=== PATIENT | female | born 1970 | race Asian ===

== ENCOUNTER 2024-08-10 12:32 | Emergency (ER) | payer BC, SELFPAY ==
[2024-08-10 12:36] VITALS: BP 178/92; PULSE 77; RESP 19; TEMP 36.9; O2SAT 99; BMI 25.2
--- NOTE | 2024-08-10 13:01 | EDNOTE_ITS ---
ED Abdominal Pain RME/HPI General Chief Complaint: Abdominal Pain Stated complaint: L SIDE GROIN PAIN Time seen by provider: 08/10/24 12:41 Arrival date/time: 08/10/24 12:32 This is a 54-year-old female who present to the emergency department with complaints of sudden bilateral groin pain for 1 day. Patient reports pain 10 out of 10 to bilateral groins that radiates into her pelvis. Denies dysuria hematuria no upper abdominal pain, no fever no nausea no vomiting. She was evaluated by her PCP and sent over due to pain. Significant past medical history of hypertension, hyperlipidemia full hysterectomy, and C-sections. Source: patient Related Data Home Medications ?Medication ?Instructions ?Recorded ?Confirmed metoprolol succinate 50 mg 50 mg PO HS ##0 02/27/12 tablet,extended release 24 hr (Toprol XL) amlodipine 10 mg tablet (Norvasc) 10 mg PO QDAY #0 tabs 12/24/13 aspirin 325 mg tablet,delayed 325 mg PO QDAY ##0 12/24/13 release (Aspirin EC) ATORVASTATIN CALCIUM 40 mg PO QDAY ##90 03/11/17 Losartan Potassium * (COZAAR *) 100 mg PO QDAY #0 tabs 03/11/17 Tizanidine Hcl 2 mg PO QDAY ##30 03/11/17 metoprolol tartrate 100 mg tablet 100 mg PO QAM ##60 03/11/17 prasugrel 10 mg tablet (Effient) 10 mg PO QDAY #0 tabs 03/12/17 Previous Rx's ?Medication ?Instructions ?Recorded Hydrocodone/Acetaminophen * (NORCO 1 tab PO Q6H PRN PAIN #12 tabs 03/12/17 5/325 *) ibuprofen 600 mg tablet 1 tab PO Q8HR PRN INFLAMMATION #30 03/12/17 tabs Hydrocodone/Acetaminophen * (NORCO 1 tab PO Q6H PRN pain #20 tabs 09/01/17 5/325 *) diphenhydramine HCl 25 mg capsule 25 mg PO Q8H PRN allergic symptoms 11/18/23 (Benadryl) #30 caps meloxicam 7.5 mg tablet 7.5 mg PO BID #14 tabs 08/10/24 Allergies Allergy/AdvReac Type Severity Reaction Status Date / Time No Known Allergies Allergy Verified 11/18/23 07:13 Review of Systems Review of Systems Systems Reviewed: All systems reviewed, normal except as documented Narrative Review of Systems: Gen: No fever, no chills, no weight loss EYES: No discharge, no visual changes, no pain HEENT: No ear pain, no congestion, no sore throat PULM: No shortness of breath, no cough, no congestion CV: No chest pain, no dyspnea on exertion, no palpitations GI: No nausea, no vomiting, no diarrhea, no pain, no constipation : No frequency, no urgency,? no dysuria Musc/skel: kody groin pain, no back pain Skin: No rash? ED Exam Narrative Physical exam: General: 54-year-old female awake and alert in distress due to pain, answering questions appropriately HENT: normocephalic, atraumatic, EOMI, PERRLA, moist mucous membranes Chest: chest wall is nontender Cardiac: regular rate and rhythm, normal S1 and S2, no murmurs, rubs, or gallops, capillary refill ?2 seconds Pulmonary: clear to auscultation bilaterally, no wheezing, crackles, or rhonchi Abdominal: active bowel sounds, soft, nontender, nondistended. mild pelvic pain, pain to bilateral groin. No bulging or masses. positive pulses Neuro: A&OX3, CN II-XII intact, sensation grossly intact bilaterally in UE and LE. Skin: no rashes, no ecchymosis Ext: no lower extremity edema Course Quality Measures none Orders Category Date Time Status CT Screening NOW Care 08/10/24 13:[address] abdomen pelvis w con Stat Exams 08/10/24 13:22 Completed US pelvic complete Stat Exams 08/10/24 14:07 Completed XR hip BI w pelvis 3-4V Stat Exams 08/10/24 13:00 Completed CBC Stat Lab 08/10/24 13:41 Completed Comprehensive Metabolic Panel Stat Lab 08/10/24 13:41 Completed Lipase Stat Lab 08/10/24 13:41 Completed Urinalysis Stat Lab 08/10/24 13:54 Completed Urine Culture Stat Lab 08/10/24 13:54 Received HYDROcodone*/APAP 5/325 [[place] 5/325] Med 08/10/24 13:03 Discontinued 1 tab PO X1 ONE Ketorolac Inj [Toradol Inj] Med 08/10/24 13:03 Discontinued 30 mg IM X1 ONE Vital Signs Vital signs: Vital Signs Temperature 98.5 F 08/10/24 12:36 Pulse Rate 77 08/10/24 12:36 Respiratory Rate 19 08/10/24 12:36 Blood Pressure 178/92 H 08/10/24 12:36 Pulse Oximetry (%) 99 08/10/24 12:36 Oxygen Delivery Method Room Air 08/10/24 12:36 Abdominal Pain MDM MDM Narrative MDM Narrative:: 54-year-old female evaluated in the emergency department for complaints of bilateral hip groin pain that began 1 day. Patient is appears to be in pain 10 out of 10 upon arrival. Vital signs stable. History of bladder lift, and hysterectomy. I will go ahead and order a CT abdomen pelvis to rule out any intra-abdominal pathology. An x-ray of hips. Patient was given 1 dose of Toradol and [place] while in ED relieving her pain. Patient did feel much improved after pain medication. CT was unremarkable. X-ray did demonstrate bilateral hip osteoarthritis. At this time I feel that the patient is stable to please call and make an appointment to see primary doctor in 1 to 2 days. Come back to the emergency room if symptoms change or worsen. Patient data External records reviewed:: [facility] previous records Clinical information provided by:: patient Social determinants that could affect healthcare access:: none Patient has the following chronic illnesses:: Hypertension, hyperlipidemia How is presenting disease/condition affected by chronic disease/condition?: no chronic disease Evaluation data The following diagnostics were reviewed and interpreted by me:: lab results and radiology exam(s) Lab and/or radiology exams considered but not ordered:: no Interpretation Summary: Examination: Bilateral hips, AP pelvis, 5 views Technique: AP, lateral views both hips, AP pelvis, 5 views Exam date and time: August 10, 2024 1313 hours INDICATIONS: Bilateral hip pain beginning 5 days ago FINDINGS: Moderate osteopenia Moderate bilateral hip osteoarthritis No right or left hip fracture or dislocation 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 CTDI: vol (mGy) 7.46 DLP: (mGycm) 443 Technique: Multiple axial sections of the abdomen and pelvis have been obtained. 64 slice high-resolution scanner used. 3 mm axial sections have been obtained, post intravenous injection Isovue 370 60 cc 2-D sagittal, coronal reconstructions obtained. Low dose protocols were performed. One or more of the following dose reduction techniques were used; automated exposure control, adjustment of the mA and/or KV according to patient size, use of iterative reconstruction technique. Findings: Diffuse fatty infiltration throughout the liver, no focal liver lesions No splenic pancreatic or adrenal mass Absent gallbladder No renal or ureteral calculi, no hydronephrosis Aorta normal size Normal appendix No bowel obstruction No diverticulitis Absent uterus No adnexal mass Mild thickening of the urinary bladder wall up to 7 mm No bladder calculi No inguinal or common femoral hernias Grade 1 anterolisthesis L4 on L5 Moderate narrowing hip joints IMPRESSION: Diffuse fatty liver No renal or ureteral calculi, no hydronephrosis Normal appendix Mild thickening of the urinary bladder wall, differential would include cystitis No pelvic mass No inguinal or common femoral hernias Examination: Pelvic ultrasound, transabdominal, complete Technique: Transabdominal ultrasound of the pelvis performed using grayscale imaging Date and time of exam: August 10, 2024 1609 hours INDICATIONS: Pelvic pain beginning one week ago, hysterectomy 2014 FINDINGS: Absent uterus Ovaries obscured by bowel gas No free fluid in the pelvis IMPRESSION: Absent uterus Ovaries obscured by bowel gas No free fluid or solid pelvic mass demonstrated Medications / Prescriptions Medications or Prescriptions considered but not ordered:: no Medication administrations:: Medication Administration History Discontinued Medications Hydrocodone Bitart/Acetaminophen (Hydrocodone/Apap 5/325 Tablet) 1 tab PO X1 ONE Stop: 08/10/24 13:04 Last Admin: 08/10/24 13:29 Dose: 1 tab Documented By: Ketorolac Tromethamine (Ketorolac Inj 60 Mg/2 Ml Vial) 30 mg IM X1 ONE Stop: 08/10/24 13:04 Last Admin: 08/10/24 13:30 Dose: 30 mg Documented By: All medications administered and effective Consultations Consultation(s) initiated? (list below): No Diagnosis Differential diagnosis abdominal pain: abdominal pain, acute appendicitis, calculus of kidney, constipation, endometriosis, pancreatitis and other (Incarcerated hernia, vascular necrosis of hips.) Most likely diagnosis given after review of the tests above:: Groin pain, hip osteoarthritis Admission Indicated Admission indicated?: not indicated Admission Request Was there a request for admission?: No Disposition Plan Disposition Plan: Discharge Discharge Attestation Discharge Attestation: The patient and all family members were given an opportunity to ask questions and understood the discharge instructions. Discharge instructions specifically effects, indications for sooner follow up or return to the emergency department, and the expected course of current diagnosis. Patient condition: Stable Discharge Plan Plan Patient Disposition: HOME (Self Care) Patient condition on transfer: Stable Prescriptions/Referrals Prescriptions/Med Rec: New meloxicam 7.5 mg tablet 7.5 mg PO BID Qty: 14 0RF No Action metoprolol succinate [Toprol XL] 50 MG tablet extended release 24 hr 50 mg PO HS Qty: 0 aspirin [Aspirin EC] 325 MG tablet,delayed release (DR/EC) 325 mg PO QDAY Qty: 0 amlodipine [Norvasc] 10 MG tablet 10 mg PO QDAY Qty: 0 ATORVASTATIN CALCIUM 40 MG tablet 40 mg PO QDAY Qty: 90 metoprolol tartrate 100 MG tablet 100 mg PO QAM Qty: 60 Losartan Potassium * (COZAAR *) 100 MG tablet 100 mg PO QDAY Qty: 0 Tizanidine Hcl 2 MG tablet 2 mg PO QDAY Qty: 30 ibuprofen 600 MG tablet 1 tab PO Q8HR PRN (Reason: INFLAMMATION) Qty: 30 0RF Hydrocodone/Acetaminophen * (NORCO 5/325 *) 1 TAB tablet 1 tab PO Q6H PRN (Reason: PAIN) Qty: 12 0RF prasugrel [Effient] 10 MG tablet 10 mg PO QDAY Qty: 0 Hydrocodone/Acetaminophen * (NORCO 5/325 *) 1 TAB tablet 1 tab PO Q6H PRN (Reason: pain) Qty: 20 0RF diphenhydramine HCl [Benadryl] 25 mg capsule 25 mg PO Q8H PRN (Reason: allergic symptoms) Qty: 30 0RF Referrals: Pearl Bautista MD [Primary Care Provider] - In 1 week Problem List Clinical Impression: Bilateral primary osteoarthritis of hip, Bilateral groin pain Patient/Caregiver Discharge Instructions Discharge Activity: activity as tolerated Education Materials: ED Osteoarthritis Additional Instructions: -as discussed this is most likely arthritis pain. -You can start taking meloxicam as directed for pain. -Follow-up with your primary doctor copies of your imaging have been provided. Return to the emergency department with any worsening symptoms or change in condition. Print Language: [place] Stand Alone Forms: [place] Award Info., Work/School Release, Patient Portal Info Letter PA/DRILL PRESS SET UP OPERATOR Supervising Physician PA/DRILL PRESS SET UP OPERATOR Supervising Physician: Dr. Weston
--- NOTE | 2024-08-10 13:22 | XR_ITS ---
Examination: CT abdomen with intravenous contrast CT pelvis with intravenous contrast 2-D coronal reconstructions 2-D sagittal reconstructions Date and time of exam:August 10, 2024 1753 hours INDICATIONS: Pelvic pain radiating to the groin today. CTDI: vol (mGy) 7.46 DLP: (mGycm) 443 Technique: Multiple axial sections of the abdomen and pelvis have been obtained. 64 slice high-resolution scanner used. 3 mm axial sections have been obtained, post intravenous injection Isovue 370 60 cc 2-D sagittal, coronal reconstructions obtained. Low dose protocols were performed. One or more of the following dose reduction techniques were used; automated exposure control, adjustment of the mA and/or KV according to patient size, use of iterative reconstruction technique. Findings: Diffuse fatty infiltration throughout the liver, no focal liver lesions No splenic pancreatic or adrenal mass Absent gallbladder No renal or ureteral calculi, no hydronephrosis Aorta normal size Normal appendix No bowel obstruction No diverticulitis Absent uterus No adnexal mass Mild thickening of the urinary bladder wall up to 7 mm No bladder calculi No inguinal or common femoral hernias Grade 1 anterolisthesis L4 on L5 Moderate narrowing hip joints IMPRESSION: Diffuse fatty liver No renal or ureteral calculi, no hydronephrosis Normal appendix Mild thickening of the urinary bladder wall, differential would include cystitis No pelvic mass No inguinal or common femoral hernias
[2024-08-10] MEDS: HYDROcodone/APAP 5/325 TABLET 1 TAB PO (13:29)
[2024-08-10] MEDS: KETOROLAC INJ 60 MG/2 ML VIAL 30 MG IM (13:30)
[2024-08-10 14:04] LABS: Collection Type, Urine Clean Catch; RBC,Urine 0 /hpf (0-3)
[2024-08-10 14:06] LABS: Basophils % (Auto) 1 % (0-2.5); Eosinophils # (Auto) 0.2 Thou/mm3 (0.0-0.5); Eosinophils % (Auto) 3 % (0-10); Hematocrit 42.2 % (36.0-46.0); Hemoglobin 14.4 g/dL (12.0-16.0); Immature Granulocytes % (Auto) 0 % (0-0); Immature Granulocytes Auto 0.02 Thou/mm3 (0.00-0.00); Lymphocytes # (Auto) 2.8 Thou/mm3 (1.0-4.8); Lymphocytes % (Auto) 37 % (10-50); Mean Corpuscular HGB Conc 34.1 g/dl (31.0-37.0); Mean Corpuscular Hemoglobin 28.7 pg (25.0-35.0); Mean Corpuscular Volume 84 fL (80-100); Monocytes # (Auto) 0.5 Thou/mm3 (0.0-0.8); Monocytes % (Auto) 7 % (0-12); Neutrophils % (Auto) 53 % (37-80); Nucleated Red Blood Cell % 0 /100 WBC (0); Platelet Count 209 Thou/mm3 (140-440); RDW Standard Deviation 37.7 fL (36.4-46.3); Red Blood Count 5.02 Miln/mm3 (4.00-5.20); White Blood Count 7.4 Thou/mm3 (3.6-11.0)
--- NOTE | 2024-08-10 14:07 | XR_ITS ---
Examination: Pelvic ultrasound, transabdominal, complete Technique: Transabdominal ultrasound of the pelvis performed using grayscale imaging Date and time of exam: August 10, 2024 1609 hours INDICATIONS: Pelvic pain beginning one week ago, hysterectomy 2014 FINDINGS: Absent uterus Ovaries obscured by bowel gas No free fluid in the pelvis IMPRESSION: Absent uterus Ovaries obscured by bowel gas No free fluid or solid pelvic mass demonstrated
[2024-08-10 14:17] LABS: Bacteria,Urine Rare; Bilirubin,Urine Negative (Negative); Blood,Urine Negative (Negative); Clarity,Urine Clear (Clear/Hazy); Color,Urine Lt-Yellow (Lt Yel-Yel); Glucose, Urine Negative (Negative); Ketones,Urine Negative (Negative); Leukocyte Esterase,Urine Negative (Negative); Nitrite,Urine Negative (Negative); PH,Urine 6.5 (5.0-7.0); Protein,Urine Negative (Neg - Trace); Specific Gravity,Urine 1.017 (1.001-1.035); Squamous Epithelial Cell,Urine < 1 /hpf (0-5); Urobilinogen,Urine Negative mg/dL (0.0-1.0); WBC,Urine 1 /hpf (0-5)
[2024-08-10 14:28] LABS: Alanine Aminotransferase 53 U/L (10-49); Albumin/Globulin Ratio 1.9 (1.2-2.2); Alkaline Phosphatase 99 U/L (46-116); Anion Gap 10 (7-16); Aspartate Amino Transferase 29 U/L (0-34); BUN/Creatinine Ratio 14 Ratio (12-20); Blood Urea Nitrogen 13 mg/dL (9-23); Calcium 9.6 mg/dL (8.3-10.6); Calcium (Corrected) 9.6 mg/dL (8.5-10.1); Carbon Dioxide 27.3 mMol/L (20.0-31.0); Chloride 104 mMol/L (98-107); Creatinine (Component) 0.9 mg/dL (0.6-1.3); Estimated Creatinine Clearance 67.7 mL/min (>60); Globulin 2.6 gm/dL (2.3-3.5); Glucose 112 mg/dL (74-106); Lipase 54 U/L (12-53); Osmolality,Calculated 282 (275-295); Potassium 3.4 mMol/L (3.4-5.1); Sodium 141 mMol/L (136-145); Total Protein 7.6 gm/dL (5.7-8.2); eGFR > 60 See Note
== END 2024-08-10 17:40 | disposition home or self-care (01) ==
PROVIDERS: Nurse Practitioner Primary Care; Emergency Provider Emergency Medicine; PCP Internal Medicine
DX: R10.32 Left lower quadrant pain (principal); R10.31 Right lower quadrant pain; M16.0 Bilateral primary osteoarthritis of hip; E78.5 Hyperlipidemia, unspecified; I10 Essential (primary) hypertension; K76.0 Fatty (change of) liver, not elsewhere classified
CPT/HCPCS: 36415; 73522; 74177; 76856; 80053; 81001; 83690; 85025; 87086; 96372; 99285; A4649; J1885; Q9967; A9270

== ENCOUNTER → 2024-08-12 | Outpatient (CLI) | payer BC, SELFPAY ==
[2024-08-12 10:17] LABS: Basophils % (Auto) 1 % (0-2.5); Eosinophils # (Auto) 0.1 Thou/mm3 (0.0-0.5); Eosinophils % (Auto) 3 % (0-10); Hematocrit 42.4 % (36.0-46.0); Hemoglobin 14.5 g/dL (12.0-16.0); Immature Granulocytes % (Auto) 0 % (0-0); Immature Granulocytes Auto 0.01 Thou/mm3 (0.00-0.00); Lymphocytes # (Auto) 1.6 Thou/mm3 (1.0-4.8); Lymphocytes % (Auto) 31 % (10-50); Mean Corpuscular HGB Conc 34.2 g/dl (31.0-37.0); Mean Corpuscular Hemoglobin 28.7 pg (25.0-35.0); Mean Corpuscular Volume 84 fL (80-100); Monocytes # (Auto) 0.3 Thou/mm3 (0.0-0.8); Monocytes % (Auto) 6 % (0-12); Neutrophils % (Auto) 59 % (37-80); Nucleated Red Blood Cell % 0 /100 WBC (0); Platelet Count 229 Thou/mm3 (140-440); RDW Standard Deviation 37.7 fL (36.4-46.3); Red Blood Count 5.05 Miln/mm3 (4.00-5.20)
[2024-08-12 10:34] LABS: Glucose Estimated Average 163 mg/dL (80-131); Hemoglobin A1C 7.3 % Hgb (4.8-6.0)
[2024-08-12 10:42] LABS: Alanine Aminotransferase 78 U/L (10-49); Albumin, Serum 5.2 gm/dL (3.5-5.0); Albumin/Globulin Ratio 2.2 (1.2-2.2); Alkaline Phosphatase 110 U/L (46-116); Anion Gap 8 (7-16); Aspartate Amino Transferase 35 U/L (0-34); BUN/Creatinine Ratio 19 Ratio (12-20); Bilirubin,Total 1.2 mg/dL (0.3-1.2); Blood Urea Nitrogen 17 mg/dL (9-23); Calcium 10.2 mg/dL (8.3-10.6); Calcium (Corrected) 10.2 mg/dL (8.5-10.1); Carbon Dioxide 30.1 mMol/L (20.0-31.0); Cardiac Risk Estimate 3.7 RATIO (3.7-5.6); Chloride 103 mMol/L (98-107); Cholesterol 174 mg/dL (132-200); Creatinine (Component) 0.9 mg/dL (0.6-1.3); Globulin 2.4 gm/dL (2.3-3.5); Glucose 138 mg/dL (74-106); HDL Cholesterol 47 mg/dL (40-60); LDL Cholesterol,Calculated 102 mg/dL (0-130); Osmolality,Calculated 284 (275-295); Potassium 3.6 mMol/L (3.4-5.1); Sodium 141 mMol/L (136-145); Thyroid Stimulating Hormone 1.14 uIU/mL (0.55-4.78); Total Protein 7.6 gm/dL (5.7-8.2); Triglycerides 127 mg/dL (30-150); Uric Acid 7.2 mg/dL (3.1-7.8); eGFR > 60 See Note
[2024-08-12 10:50] LABS: Vitamin B12 918 pg/mL (211-911); Vitamin D 25 Hydroxy Total 52.1 ng/mL (7.3-40.2)
[2024-08-12 13:23] LABS: Collection Type, Urine Clean Catch; Squamous Epithelial Cell,Urine 0 /hpf (0-5)
[2024-08-12 13:47] LABS: Bilirubin,Urine Negative (Negative); Blood,Urine Negative (Negative); Clarity,Urine Clear (Clear/Hazy); Color,Urine Colorless (Lt Yel-Yel); Glucose, Urine Negative (Negative); Ketones,Urine Negative (Negative); Leukocyte Esterase,Urine Negative (Negative); Nitrite,Urine Negative (Negative); PH,Urine 6.5 (5.0-7.0); Protein,Urine Negative (Neg - Trace); RBC,Urine 1 /hpf (0-3); Specific Gravity,Urine 1.006 (1.001-1.035); Urobilinogen,Urine Negative mg/dL (0.0-1.0); WBC,Urine 5 /hpf (0-5)
[2024-08-12 14:05] LABS: Creatinine MALB Rnd Ur 30 mg/dL (30-125); Microalbumin, Random Urine < 3 mg/L (0-300)
[2024-08-16 06:24] LABS: Aldosterone* 5 ng/dL
[2024-08-22 06:54] LABS: Renin Activity, Plasma* 0.39 ng/mL/h (0.25-5.82)
== END | disposition home or self-care (01) ==
PROVIDERS: PCP Internal Medicine; Referring Provider Internal Medicine Endocrinology, Diabetes & Metabolism; Visit Provider Internal Medicine
DX: Z00.00 Encounter for general adult medical examination without abnormal findings (principal); E11.65 Type 2 diabetes mellitus with hyperglycemia; I10 Essential (primary) hypertension; E78.5 Hyperlipidemia, unspecified; E26.9 Hyperaldosteronism, unspecified
CPT/HCPCS: 36415; 80053; 80061; 81001; 82043; 82088; 82306; 82570; 82607; 83036; 84244; 84443; 84550; 85025

== ENCOUNTER → 2024-08-12 | Outpatient (CLI) | payer BC, SELFPAY ==
--- NOTE | 2024-08-12 12:30 | XR_ITS ---
Examination: Thyroid sonography complete TECHNIQUE: Grayscale high resolution grayscale sonographic images thyroid lobes with color flow analysis Exam date and time: August 12, 2024 1158 hours INDICATIONS: History bilateral thyroid nodules on ultrasound October 07, 2023, lower pole left thyroid nodule 12 mm biopsied on January 20, 2024, negative FINDINGS: Right thyroid 5.1 x 1.9 x 1.9 cm Lower pole nodule 6 x 5 x 5 mm, 5 x 2 x 6 mm Left thyroid 4.7 x 1.6 x 1.9 cm Upper pole nodule 7 x 4 x 7 mm, 6 x 5 x 6 mm Lower pole nodule 11 x 8 x 11 mm IMPRESSION: Thyroid nodules as above Consider 6 month continued ultrasound follow-up
== END | disposition home or self-care (01) ==
PROVIDERS: PCP Internal Medicine; Referring Provider Internal Medicine Endocrinology, Diabetes & Metabolism; Visit Provider Internal Medicine Endocrinology, Diabetes & Metabolism
DX: E04.2 Nontoxic multinodular goiter (principal)
CPT/HCPCS: 76536

== ENCOUNTER 2024-12-05 06:29 | Emergency (ER) | payer BC, SELFPAY ==
[2024-12-05] VITALS (7 sets, daily range): BP systolic 88–124; BP diastolic 55–80; PULSE 69–88; RESP 13–19; TEMP 36.6–37.2; O2SAT 95–98; BMI 25.0
--- NOTE | 2024-12-05 06:54 | EKG_ITS ---
[facility] Test Date: 2024-12-05 Pat Name: MARIELENA DELGADO Department: Room: - Gender: Female [employer]: : 1970 Requested By: Darian Santana Order Number: [id number] Reading MD: Darian Santana Measurements Intervals [place] Rate: 72 P: 136 MN: 212 QRS: 3 QRSD: 95 T: 27 QT: 402 QTc: 440 Interpretive Statements ELECTRONIC ATRIAL PACEMAKER LOW QRS VOLTAGE IN PRECORDIAL LEADS [QRS DEFLECTION < 1.0 mV IN CHEST LEADS] NONSPECIFIC T-WAVE ABNORMALITY ABNORMAL RHYTHM ECG No previous ECG available for comparison /store/S0/[id number].pdf
--- NOTE | 2024-12-05 06:57 | PD.EDRME ---
Rapid Medical Screening Exam E Arrival date/time: 12/05/24 06:29 54-year-old female with a history of hyperlipidemia, hypertension, presents to the emergency room with a chief complaint of lower lumbar back pain, near syncope, dizziness x 2 days. Patient states all of her symptoms began yesterday and has progressively gotten worse overnight. I have greeted and performed a focused initial assessment of this patient. A comprehensive ED assessment and evaluation of the patient, analysis of all test results, and completion of the medical decision making process will be conducted by additional ED providers. Chief Complaint: Back Pain/Injury Time Seen by Provider: 12/05/24 06:39 Vital signs: Vital Signs Temperature 98.9 F 12/05/24 06:49 Pulse Rate 69 12/05/24 06:49 Respiratory Rate 16 12/05/24 06:49 Blood Pressure 91/60 12/05/24 06:49 Pulse Oximetry (%) 98 12/05/24 06:49 Oxygen Delivery Method Room Air 12/05/24 06:49 Vital signs reviewed by provider: Yes
--- NOTE | 2024-12-05 07:17 | EDNOTE_ITS ---
ED General RME/HPI General Chief complaint: Back Pain/Injury Stated complaint: BACK PAIN Time Seen by Provider: 12/05/24 06:39 Arrival date/time: 12/05/24 06:29 RME / HPI RME / HPI narrative: 12/05/24 06:29 54-year-old female with a history of hyperlipidemia, hypertension, presents to the emergency room with a chief complaint of lower lumbar back pain, near syncope, dizziness x 2 days. Patient states all of her symptoms began yesterday and has progressively gotten worse overnight. I have greeted and performed a focused initial assessment of this patient. A comprehensive ED assessment and evaluation of the patient, analysis of all test results, and completion of the medical decision making process will be conducted by additional ED providers. DR. JARAMILLO MAIN ED EVALUATION: 54 year old female presents to the Emergency Department with complaint of right sided mid back pain since yesterday evening. She states she was trying to get up from the couch and felt like she pulled something. She states that she took Tylenol with little to no relief last night. Then this morning she had pain again and came in for evaluation. She denies any radiation. States she has history of sciatica pain but this feels different with no radiation. Other symptoms reported include nausea and loose stools. No vomiting. Denies any fall or recent injury. Denies any dysuria or other urinary symptoms. Reports normal appetite. She also mentions she has history of hypertension but did not take her medications this morning because her blood pressure was low at home. No known allergies. Related Data Home Medications ?Medication ?Instructions ?Recorded ?Confirmed metoprolol succinate 50 mg 50 mg PO HS ##0 02/27/12 tablet,extended release 24 hr (Toprol XL) amlodipine 10 mg tablet (Norvasc) 10 mg PO QDAY #0 tab s 12/24/13 aspirin 325 mg tablet,delayed 325 mg PO QDAY ##0 12/24 release (Aspirin EC) ATORVASTATIN CALCIUM 40 mg PO QDAY ##90 03/11/17 Losartan Potassium * (COZAAR *) 100 mg PO QDAY #0 tabs 03/11/17 Tizanidine Hcl 2 mg PO QDAY ##30 03/11/17 metoprolol tartrate 100 mg tablet 100 mg PO QAM ##60 0 03/11/17 prasugrel 10 mg tablet (Effient) 10 mg PO QDAY #0 tabs 03/12/17 Previous Rx's ?Medication ?Instructions ?Recorded Hydrocodone/Acetaminophen * (NORCO 1 tab PO Q6H PRN PA IN #12 tabs 03/12/17 5/325 *) ibuprofen 600 mg tablet 1 tab PO Q8HR PRN INFLAMMATI ON #30 03/12/17 tabs Hydrocodone/Acetaminophen * (NORCO 1 tab PO Q6H PRN pa in #20 tabs 09/01/17 5/325 *) diphenhydramine HCl 25 mg capsule 25 mg PO Q8H PRN all ergic symptoms 11/18/23 (Benadryl) #30 caps meloxicam 7.5 mg tablet 7.5 mg PO BID #14 tabs 08/10 cyclobenzaprine 5 mg tablet 5 mg PO TID PRN muscle spa sm #10 12/05/24 tabs Allergies Allergy/AdvReac Type Severity Reaction Status Date / Time No Known Allergies Allergy Verified 12/05/24 06:38 Review of Systems Review of Systems Systems Reviewed: All systems reviewed, normal except as documented Narrative Review of Systems: Gen: No fever, no chills, no weight loss EYES: No discharge, no visual changes, no pain HEENT: No ear pain, no congestion, no sore throat PULM: No shortness of breath, no cough, no congestion CV: No chest pain, no dyspnea on exertion, no palpitations GI: + nausea, no vomiting, + loose stools, no pain, no constipation : No frequency, no urgency, no dysuria Musc/skel: No joint pain, + right sided mid back pain Skin: No rash Psyc: No hallucinations, no depression Heme/Lymph: No easy bleeding or bruising tendencies Neuro: No weakness, no headache Past Medical History Past Medical History CARDIAC: Positive Cardiac Disorders (Sick sinus syndrome, 1 stent), Coronary Artery Disease and Hypertension Surgical History SURGICAL: Positive Coronary Stent and Pacemaker (atrial pacemaker) Social History SMOKING STATUS: Never smoker SUBSTANCE USE: does not use ALCOHOL: Never ED Exam Narrative Physical exam: GENERAL APPEARANCE: alert and oriented x 4, well-developed, well-nourished, no acute distress VITALS: All vitals were reviewed and the pulse ox is 98% on room air, which is normal according to my interpretation. HEENT: Normocephalic, atraumatic; pupils equal, round, reactive to light; EOMI; mucous membranes pink, moist; oropharynx clear NECK: Supple LUNGS: CTABL; no wheezes, no rales, no rhonchi HEART: Regular rate, regular rhythm; normal S1, S2; no murmurs ABDOMEN: non distended; normal BS; soft, no tenderness, no guarding, no rebound; no masses, no organomegaly, no hernia BACK: no CVA tenderness EXTREMITIES: atraumatic; no edema NEUROLOGIC: awake; alert and oriented x4; cranial nerves II-XII grossly intact; no focal sensory or motor deficits PSYCHIATRIC: appropriate mood and affect SKIN: warm, dry, normal color; no rashes Course Quality Measures none Orders Category Date Time Status Bedside Blood Glucose NOW Care 12/05/24 06:54 Active EKG (ED ONLY) *Do not use* NOW Care 12/05/24 06:54 Completed MRI Screening NOW Care 12/05/24 14:01 Active Orthostatic Vitals NOW Care 12/05/24 06:54 Active EKG (ED Only) Stat Exams 12/05/24 06:54 Draft MR MRCP Stat Exams 12/05/24 Ordered US abdomen limited Stat Exams 12/05/24 08:59 Completed BNP [B-Type Natriuretic Peptide] Stat Lab 12/05/24 08:09 Completed CBC Stat Lab 12/05/24 08:09 Completed Comprehensive Metabolic Panel Stat Lab 12/05/24 08:09 Completed Troponin I Stat Lab 12/05/24 08:09 Completed Urinalysis Stat Lab 12/05/24 06:38 Completed Urine Culture Stat Lab 12/05/24 06:38 Received CYCLObenzaPRINE [Flexeril] Med 12/05/24 17:16 Discontinued 5 mg PO X1 ONE Calcium Gluc/Ns 1000MG Ivpb [Calcium Gluc/Ns 1000mg Med 12/05/24 14:41 Discontinued Ivpb] 1,000 mg in 50 ml IV X1 Ketorolac Inj [Toradol Inj] Med 12/05/24 09:02 Discontinued 15 mg IVP X1 ONE Sod Polystyrene Sulfon Susp [Kayexalate Susp] Med 12/05/24 14:41 Discontinued 30 gm PO X1 ONE fentaNYL INJ [Sublimaze Inj] Med 12/05/24 07:55 Discontinued 50 mcg IVP X1 ONE Vital Signs Vital signs: Vital Signs Temperature 98.9 F 12/05/24 06:49 Pulse Rate 69 12/05/24 06:49 Respiratory Rate 16 12/05/24 06:49 Blood Pressure 91/60 12/05/24 06:49 Pulse Oximetry (%) 98 12/05/24 06:49 Oxygen Delivery Method Room Air 12/05/24 06:49 [facility] Patient data External records reviewed:: [facility] previous records (Previous records shows slight transaminitis) Clinical information provided by:: patient Social determinants that could affect healthcare access:: none Patient has the following chronic illnesses:: Hypertension, sciatica, pacemaker How is presenting disease/condition affected by chronic disease/condition?: e xacerbated by Evaluation data The following diagnostics were reviewed and interpreted by me:: lab results (Slight transaminitis, renal function at baseline), radiology exam(s) and EKG tracing(s) (EKG#1: EKG at 0713 hours. Interpreted by me: paced rhythm, rate 72, low voltage) Lab and/or radiology exams considered but not ordered:: none Interpretation Summary: Slight transaminitis, renal function at baseline. RADIOLOGY Procedure(s): US abdomen limited Accession Number(s): [id number] cc: Castro Tinsley MD; Jennifer Jaramillo MD; Ankur Brush MD~ Examination: Abdomen sonogram, Limited Date and time of exam: December 05, 2024 1031 hours INDICATIONS: Right upper abdominal pain and nausea beginning today Technique: Real-time zee scale transabdominal sonographic images of the upper abdomen obtained. Findings: Absent gallbladder Common bile duct enlarged 1.1 cm Pancreatic head 2.2 cm Liver 15.2 cm fatty infiltration 15 mm right lobe liver cyst Normal hepatopedal portal venous flow Patent IVC 4 mm right renal calculus IMPRESSION: Abnormally enlarged common bile duct, recommend MRCP follow-up to exclude common bile duct stones and/or stricture Dictated By: Castro Tinsley MD Medications Medications considered but not ordered:: none Medication administrations:: Medication Administration History Discontinued Medications Cyclobenzaprine HCl (Cyclobenzaprine 5 Mg Tablet) 5 mg PO X1 ONE Stop: 12/05/24 17:17 Last Admin: 12/05/24 17:22 Dose: 5 mg Documented By: ZAY Fentanyl Citrate (Fentanyl Cit Inj 50 Mcg/Ml Amp 2ml) 50 mcg IVP X1 ONE Stop: 12/05/24 07:56 Last Admin: 12/05/24 08:11 Dose: 50 mcg Documented By: GERTRUDE Calcium Gluconate/Sodium Chloride (Calcium Gluc/Ns 1000mg Ivpb) 1,000 mg in 50 mls @ 50 mls/hr IV X1 ONE Stop: 12/05/24 15:40 Last Infusion: 12/05/24 17:19 Dose: Infused Documented By: Admin: 12/05/24 16:15 Dose: 50 mls/hr Documented By: Infusion: 12/05/24 16:15 Dose: Infused Documented By: Infusion: 12/05/24 15:24 Dose: 0 mls/hr Documented By: Admin: 12/05/24 15:24 Dose: 50 mls/hr Documented By: NAI Ketorolac Tromethamine (Ketorolac Inj 30 Mg/Ml Vial) 15 mg IVP X1 ONE Stop: 12/05/24 09:03 Last Admin: 12/05/24 09:17 Dose: 15 mg Documented By: ZAY Sodium Polystyrene Sulfonate (Sod Polystyrene Sulfon Susp 15 Gm/60 Ml Btl) 30 gm PO X1 ONE Stop: 12/05/24 14:42 Last Admin: 12/05/24 15:22 Dose: 30 gm Documented By: NAI see above Consultations Consultation(s) initiated? (list below): No Diagnosis Differential Diagnosis ED Complaint MDM: kidney stone, pyelonephritis, UTI, sciatica Most likely diagnosis given after review of the tests above:: Back pain Muscle spasm of back Common bile duct dilatation Admission Indicated Admission indicated?: not indicated Explain why admission is indicated or not indicated:: Patient has no emergent abnormalities on his studies and can be managed on an outpatient basis. Admission Request Was there a request for admission?: No Disposition Plan Disposition Plan: Discharge Discharge Attestation Discharge Attestation: The patient and all family members were given an opportunity to ask questions and understood the discharge instructions. Discharge instructions specifically effects, indications for sooner follow up or return to the emergency department, and the expected course of current diagnosis. Patient condition: Stable Medical Decision Making MDM Narrative MDM Narrative: I, Breanna Leon, am scribing for and in the presence of Dr. Jaramillo. Differential Diagnosis Differential Diagnosis: kidney stone, pyelonephritis, UTI, sciatica Lab Data 12/05/24 08:09 12/05/24 08:09 Labs: Lab Results 12/05/24 12/05/24 Range/Units 06:38 08:09 WBC 11.3 H (3.6-11.0) Thou/mm3 RBC 5.05 (4.00-5.20) Miln/mm3 Hgb 14.7 (12.0-16.0) g/dL Hct 42.6 (36.0-46.0) % MCV 84 (80-100) fL MCH 29.1 (25.0-35.0) pg MCHC 34.5 (31.0-37.0) g/dl RDW Std Deviation 40.2 (36.4-46.3) fL Plt Count 238 (140-440) Thou/mm3 Neut % (Auto) 80 (37-80) % Lymph % (Auto) 11 (10-50) % [place] % (Auto) 7 (0-12) % Eos % (Auto) 1 (0-10) % Baso % (Auto) 0 (0-2.5) % Neut # (Auto) 9.1 H (1.8-7.7) Thou/mm3 Lymph # (Auto) 1.3 (1.0-4.8) Thou/mm3 [place] # (Auto) 0.8 (0.0-0.8) Thou/mm3 Eos # (Auto) 0.1 (0.0-0.5) Thou/mm3 Baso # (Auto) 0.0 (0.0-0.2) Thou/mm3 Immature Gran # (Auto) 0.04 H (0.00-0.00) Thou/mm3 Absolute Nucleated RBC 0.00 (0.00-0.00) Thou/mm3 Immature Gran % 0 (0-0) % Nucleated RBC % 0 (0) /100 WBC Sodium 139 (136-145) mMol/L Potassium 5.3 H (3.4-5.1) mMol/L Chloride 103 (98-107) mMol/L Carbon Dioxide 27.0 (20.0-31.0) mMol/L Anion Gap 9 (7-16) BUN 18 (9-23) mg/dL Creatinine 1.0 (0.6-1.3) mg/dL Estim Creat Clear Calc 60.9 L (>60) mL/min eGFR > 60 (60 - ) See Note BUN/Creatinine Ratio 18 (12-20) Ratio Glucose 155 H (74-106) mg/dL Calculated Osmolality 282 (275-295) Calcium 9.7 (8.3-10.6) mg/dL Corrected Calcium 9.7 (8.5-10.1) mg/dL Total Bilirubin 1.4 H (0.3-1.2) mg/dL AST 50 H (0-34) U/L ALT 69 H (10-49) U/L Alkaline Phosphatase 76 (46-116) U/L Troponin I 0.032 (0.0-0.045) ng/mL B-Natriuretic Peptide < 20 (0-100) pg/mL Total Protein 7.7 (5.7-8.2) gm/dL Albumin 4.8 (3.5-5.0) gm/dL Globulin 2.9 (2.3-3.5) gm/dL Albumin/Globulin Ratio 1.7 (1.2-2.2) Ur Collection Type Clean Catch Urine Color Yellow (Lt Yel-Yel) Urine Clarity Clear (Clear/Hazy) Urine pH 6.5 (5.0-7.0) Ur Specific [place] 1.024 (1.001-1.035) Urine Protein Trace (Neg - Trace) Urine Glucose (UA) Negative (Negative) Urine Ketones Negative (Negative) Urine Blood Negative (Negative) Urine Nitrite Negative (Negative) Urine Bilirubin Negative (Negative) Urine Urobilinogen (Auto) Negative (0.0-1.0) mg/dL Ur Leukocyte Esterase Negative (Negative) Urine RBC 5 H (0-3) /hpf Urine WBC 1 (0-5) /hpf Ur Squamous Epith Cells < 1 (0-5) /hpf Urine Bacteria None (None) Hyaline Casts < 1 (0-1) /hpf Discharge Plan Plan Patient Disposition: HOME (Self Care) Prescriptions/Referrals Prescriptions/Med Rec: New cyclobenzaprine 5 mg tablet 5 mg PO TID PRN (Reason: muscle spasm) Qty: 10 0RF No Action metoprolol succinate [Toprol XL] 50 MG tablet extended release 24 hr 50 mg PO HS Qty: 0 aspirin [Aspirin EC] 325 MG tablet,delayed release (DR/EC) 325 mg PO QDAY Qty: 0 amlodipine [Norvasc] 10 MG tablet 10 mg PO QDAY Qty: 0 ATORVASTATIN CALCIUM 40 MG tablet 40 mg PO QDAY Qty: 90 metoprolol tartrate 100 MG tablet 100 mg PO QAM Qty: 60 Losartan Potassium * (COZAAR *) 100 MG tablet 100 mg PO QDAY Qty: 0 Tizanidine Hcl 2 MG tablet 2 mg PO QDAY Qty: 30 ibuprofen 600 MG tablet 1 tab PO Q8HR PRN (Reason: INFLAMMATION) Qty: 30 0RF Hydrocodone/Acetaminophen * (NORCO 5/325 *) 1 TAB tablet 1 tab PO Q6H PRN (Reason: PAIN) Qty: 12 0RF prasugrel [Effient] 10 MG tablet 10 mg PO QDAY Qty: 0 Hydrocodone/Acetaminophen * (NORCO 5/325 *) 1 TAB tablet 1 tab PO Q6H PRN (Reason: pain) Qty: 20 0RF diphenhydramine HCl [Benadryl] 25 mg capsule 25 mg PO Q8H PRN (Reason: allergic symptoms) Qty: 30 0RF meloxicam 7.5 mg tablet 7.5 mg PO BID Qty: 14 0RF Referrals: Ankur Brush MD [Primary Care Provider] - In 1 week Problem List Clinical Impression: Back pain, Muscle spasm of back, Common bile duct dilatation Patient/Caregiver Discharge Instructions Education Materials: ED Back Spasm, No Trauma Print Language: Guatemalan Stand Alone Forms: [employer] Award Info., Patient Portal Info Letter
[2024-12-05] MEDS: fentaNYL CIT INJ 50 mCg/ML AMP 2ML IVP (08:11)
[2024-12-05 08:15] LABS: Basophils % (Auto) 0 % (0-2.5); Eosinophils # (Auto) 0.1 Thou/mm3 (0.0-0.5); Eosinophils % (Auto) 1 % (0-10); Hematocrit 42.6 % (36.0-46.0); Hemoglobin 14.7 g/dL (12.0-16.0); Immature Granulocytes % (Auto) 0 % (0-0); Immature Granulocytes Auto 0.04 Thou/mm3 (0.00-0.00); Lymphocytes # (Auto) 1.3 Thou/mm3 (1.0-4.8); Lymphocytes % (Auto) 11 % (10-50); Mean Corpuscular HGB Conc 34.5 g/dl (31.0-37.0); Mean Corpuscular Hemoglobin 29.1 pg (25.0-35.0); Mean Corpuscular Volume 84 fL (80-100); Monocytes # (Auto) 0.8 Thou/mm3 (0.0-0.8); Monocytes % (Auto) 7 % (0-12); Neutrophils # (Auto) 9.1 Thou/mm3 (1.8-7.7); Neutrophils % (Auto) 80 % (37-80); Nucleated Red Blood Cell % 0 /100 WBC (0); Platelet Count 238 Thou/mm3 (140-440); RDW Standard Deviation 40.2 fL (36.4-46.3); Red Blood Count 5.05 Miln/mm3 (4.00-5.20); White Blood Count 11.3 Thou/mm3 (3.6-11.0)
[2024-12-05 08:39] LABS: B-Type Natriuretic Peptide < 20 pg/mL (0-100)
[2024-12-05 08:41] LABS: Alanine Aminotransferase 69 U/L (10-49); Albumin, Serum 4.8 gm/dL (3.5-5.0); Albumin/Globulin Ratio 1.7 (1.2-2.2); Alkaline Phosphatase 76 U/L (46-116); Anion Gap 9 (7-16); Aspartate Amino Transferase 50 U/L (0-34); BUN/Creatinine Ratio 18 Ratio (12-20); Bilirubin,Total 1.4 mg/dL (0.3-1.2); Blood Urea Nitrogen 18 mg/dL (9-23); Calcium 9.7 mg/dL (8.3-10.6); Calcium (Corrected) 9.7 mg/dL (8.5-10.1); Chloride 103 mMol/L (98-107); Estimated Creatinine Clearance 60.9 mL/min (>60); Globulin 2.9 gm/dL (2.3-3.5); Glucose 155 mg/dL (74-106); Osmolality,Calculated 282 (275-295); Potassium 5.3 mMol/L (3.4-5.1); Sodium 139 mMol/L (136-145); Total Protein 7.7 gm/dL (5.7-8.2); Troponin I 0.032 ng/mL (0.0-0.045); eGFR > 60 See Note
[2024-12-05 08:47] LABS: Collection Type, Urine Clean Catch
[2024-12-05 08:57] LABS: Bilirubin,Urine Negative (Negative); Blood,Urine Negative (Negative); Clarity,Urine Clear (Clear/Hazy); Color,Urine Yellow (Lt Yel-Yel); Glucose, Urine Negative (Negative); Hyaline Casts,Urine < 1 /hpf (0-1); Ketones,Urine Negative (Negative); Leukocyte Esterase,Urine Negative (Negative); Nitrite,Urine Negative (Negative); PH,Urine 6.5 (5.0-7.0); Protein,Urine Trace (Neg - Trace); RBC,Urine 5 /hpf (0-3); Specific Gravity,Urine 1.024 (1.001-1.035); Squamous Epithelial Cell,Urine < 1 /hpf (0-5); Urobilinogen,Urine Negative mg/dL (0.0-1.0); WBC,Urine 1 /hpf (0-5)
--- NOTE | 2024-12-05 08:59 | XR_ITS ---
Examination: Abdomen sonogram, Limited Date and time of exam: December 05, 2024 1031 hours INDICATIONS: Right upper abdominal pain and nausea beginning today Technique: Real-time zee scale transabdominal sonographic images of the upper abdomen obtained. Findings: Absent gallbladder Common bile duct enlarged 1.1 cm Pancreatic head 2.2 cm Liver 15.2 cm fatty infiltration 15 mm right lobe liver cyst Normal hepatopedal portal venous flow Patent IVC 4 mm right renal calculus IMPRESSION: Abnormally enlarged common bile duct, recommend MRCP follow-up to exclude common bile duct stones and/or stricture
[2024-12-05] MEDS: KETOROLAC INJ 30 MG/ML VIAL 15 MG IVP (09:17)
--- NOTE | 2024-12-05 10:15 | PC.NURSE ---
Inquired with patient why she refused ABG, Patient and mother stated they were told by RT that she could refuse it and if the doctor really wants it he can order it via her IV so she doesn't have to get poked. Educated patient on difference between ABG and VBG. Patient states she doesn't want to get poked if she doesn't have to and is still refusing ABG. receiving room clerk and MD notified
[2024-12-05] MEDS: SOD POLYSTYRENE SULFON SUSP 15 GM/60 ML BTL 30 GM PO (15:22)
[2024-12-05] MEDS: CALCIUM GLUC/NS 1000MG IVPB 1,000 MG/50 ML BAG 50 MG IV ×2 (15:24→16:15)
--- NOTE | 2024-12-05 16:04 | PC.LAC ---
attempt to admin calcium gluc but tubing was bad. was unable to admin med. wasted remaining bag. called pharmacy to request a new bag.
[2024-12-05] MEDS: CYCLObenzaPRINE 5 MG TABLET PO (17:22)
== END 2024-12-05 17:41 | disposition home or self-care (01) ==
PROVIDERS: Nurse Practitioner Family; Emergency Provider Emergency Medicine; PCP Family Medicine
DX: M62.830 Muscle spasm of back (principal); K83.8 Other specified diseases of biliary tract; E78.5 Hyperlipidemia, unspecified; I10 Essential (primary) hypertension; R55 Syncope and collapse
CPT/HCPCS: 36415; 76705; 80053; 81001; 83880; 84484; 85025; 87086; 93005; 96365; 96375; 99284; J0613; J1885; J3010; A9270

== ENCOUNTER → 2024-12-16 | Outpatient (CLI) | payer BC, SELFPAY ==
--- NOTE | 2024-12-16 07:15 | XR_ITS ---
Examination: Ultrasound abdominal aorta TECHNIQUE: Grayscale sonographic images abdominal aorta Exam date and time: December 16, 2024 0718 hours INDICATIONS: Abdominal pain one month. FINDINGS: AP dimension proximal aorta 2.5 cm mid aorta 1.5 cm distal aorta 1.0 cm right iliac 0.9 cm left iliac 1.0 cm IMPRESSION: Negative for abdominal aortic aneurysm
[2024-12-16 08:08] LABS: Collection Type, Urine Clean Catch
[2024-12-16 08:40] LABS: Basophils # (Auto) 0.1 Thou/mm3 (0.0-0.2); Basophils % (Auto) 1 % (0-2.5); Eosinophils # (Auto) 0.2 Thou/mm3 (0.0-0.5); Eosinophils % (Auto) 2 % (0-10); Hematocrit 37.7 % (36.0-46.0); Immature Granulocytes % (Auto) 1 % (0-0); Immature Granulocytes Auto 0.05 Thou/mm3 (0.00-0.00); Lymphocytes # (Auto) 1.7 Thou/mm3 (1.0-4.8); Lymphocytes % (Auto) 16 % (10-50); Mean Corpuscular HGB Conc 34.5 g/dl (31.0-37.0); Mean Corpuscular Hemoglobin 28.6 pg (25.0-35.0); Mean Corpuscular Volume 83 fL (80-100); Monocytes # (Auto) 0.9 Thou/mm3 (0.0-0.8); Monocytes % (Auto) 9 % (0-12); Neutrophils # (Auto) 7.5 Thou/mm3 (1.8-7.7); Neutrophils % (Auto) 72 % (37-80); Nucleated Red Blood Cell % 0 /100 WBC (0); Platelet Count 435 Thou/mm3 (140-440); Red Blood Count 4.55 Miln/mm3 (4.00-5.20); White Blood Count 10.4 Thou/mm3 (3.6-11.0)
[2024-12-16 08:46] LABS: Glucose Estimated Average 140 mg/dL (80-131); Hemoglobin A1C 6.5 % Hgb (4.8-6.0)
[2024-12-16 08:50] LABS: Bacteria,Urine 1+; Bilirubin,Urine Negative (Negative); Blood,Urine Negative (Negative); Clarity,Urine Clear (Clear/Hazy); Color,Urine Lt-Yellow (Lt Yel-Yel); Glucose, Urine Negative (Negative); Hyaline Casts,Urine < 1 /hpf (0-1); Ketones,Urine Negative (Negative); Leukocyte Esterase,Urine Negative (Negative); Nitrite,Urine Negative (Negative); Protein,Urine Negative (Neg - Trace); RBC,Urine 2 /hpf (0-3); Specific Gravity,Urine 1.013 (1.001-1.035); Squamous Epithelial Cell,Urine 1 /hpf (0-5); Urobilinogen,Urine Negative mg/dL (0.0-1.0); WBC,Urine 18 /hpf (0-5)
[2024-12-16 08:54] LABS: Vitamin B12 1049 pg/mL (211-911); Vitamin D 25 Hydroxy Total 55.7 ng/mL (7.3-40.2)
[2024-12-16 08:55] LABS: Alanine Aminotransferase 75 U/L (10-49); Albumin, Serum 4.6 gm/dL (3.5-5.0); Albumin/Globulin Ratio 1.5 (1.2-2.2); Alkaline Phosphatase 157 U/L (46-116); Anion Gap 12 (7-16); Aspartate Amino Transferase 33 U/L (0-34); BUN/Creatinine Ratio 14 Ratio (12-20); Bilirubin,Total 0.9 mg/dL (0.3-1.2); Blood Urea Nitrogen 32 mg/dL (9-23); Calcium 10.1 mg/dL (8.3-10.6); Calcium (Corrected) 10.1 mg/dL (8.5-10.1); Carbon Dioxide 27.7 mMol/L (20.0-31.0); Cardiac Risk Estimate 4.8 RATIO (3.7-5.6); Chloride 100 mMol/L (98-107); Cholesterol 125 mg/dL (132-200); Creatinine (Component) 2.3 mg/dL (0.6-1.3); Glucose 138 mg/dL (74-106); HDL Cholesterol 26 mg/dL (40-60); LDL Cholesterol,Calculated 68 mg/dL (0-130); Osmolality,Calculated 288 (275-295); Potassium 3.3 mMol/L (3.4-5.1); Sodium 140 mMol/L (136-145); Thyroid Stimulating Hormone 2.35 uIU/mL (0.55-4.78); Total Protein 7.6 gm/dL (5.7-8.2); Triglycerides 156 mg/dL (30-150); Uric Acid 9.8 mg/dL (3.1-7.8); eGFR 25 See Note
[2024-12-16 09:10] LABS: Creatinine MALB Rnd Ur 137 mg/dL (30-125); Microalbumin Creat Ratio 9 mg/gCrea (<30); Microalbumin, Random Urine 12 mg/L (0-300)
== END | disposition home or self-care (01) ==
LOC: CDIM 07:00 → COPL 07:33
PROVIDERS: PCP Internal Medicine; Referring Provider Internal Medicine; Visit Provider Radiology Diagnostic Radiology
DX: R10.84 Generalized abdominal pain (principal); Z00.00 Encounter for general adult medical examination without abnormal findings; E11.9 Type 2 diabetes mellitus without complications; I10 Essential (primary) hypertension; E78.5 Hyperlipidemia, unspecified
CPT/HCPCS: 36415; 76706; 80053; 80061; 81001; 82043; 82306; 82570; 82607; 83036; 84443; 84550; 85025

== ENCOUNTER 2024-12-19 14:51 | Observation (INO) | payer BC, SELFPAY ==
--- NOTE | 2024-12-19 15:27 | PD.NEPHHP ---
Documentation for date of: 12/19/24 History of Present Illness History of Present Illness Chief complaint: Dehydration History of present illness: Please see Dr. Squires's H&P Meds Home Medications and Allergies Home Medications ?Medication ?Instructions ?Recorded ?Confirmed ?Type aspirin 325 mg tablet,delayed 325 mg PO QDAY ##0 12/24/13 History release (Aspirin EC) Allergies Allergy/AdvReac Type Severity Reaction Status Date / Time No Known Allergies Allergy Verified 12/05/24 06:38 Exam Vital Signs Temp Pulse Resp BP Pulse Ox O2 Del Method 36.6 C 71 18 148/92 H 98 Room Air 12/20/24 12:00 12/20/24 12:00 12/20/24 12:00 12/20/24 12:00 12/20/24 12:00 12/20/24 12:00 Results: Labs 12/20/24 08:25 12/20/24 08:25 Labs: Short CBC 12/19/24 12/20/24 Range/Units 16:23 08: WBC 9.4 7.4 (3.6-11.0) Thou/mm3 Hgb 12.4 12.1 (12.0-16.0) g/dL Hct 36.0 34.3 L (36.0-46.0) % Plt Count 430 437 (140-440) Thou/mm3 BMP 12/19/24 12/20/24 16:23 08:25 Sodium 143 144 Potassium 3.1 L 4.0 D Chloride 103 108 H Carbon Dioxide 29.1 25.9 BUN 19 14 Creatinine 1.0 D 0.9 Glucose 92 140 H D Calcium 9.7 9.0 Liver Function 12/19/24 12/20/24 Range/Units 16:23 08:25 Total Bilirubin 0.6 0.7 (0.3-1.2) mg/dL Direct Bilirubin 0.2 (0.0-0.3) mg/dL AST 23 23 (0-34) U/L ALT 45 40 (10-49) U/L Alkaline Phosphatase 128 H 115 (46-116) U/L Albumin 4.4 4.1 (3.5-5.0) gm/dL Urine 12/19/24 Range/Units 17:10 Urine Color Colorless A (Lt Yel-Yel) Urine Clarity Hazy (Clear/Hazy) Urine pH 7.0 (5.0-7.0) Ur Specific [place] 1.007 (1.001-1.035) Urine Protein Negative (Neg - Trace) Urine Glucose (UA) Negative (Negative) Quality Measures Quality Measures VTE prophylaxis
[2024-12-19 15:40] VITALS: BMI 23.9
[2024-12-19 15:46] VITALS: BP 154/75; PULSE 71; RESP 16; TEMP 36.9; O2SAT 99
[2024-12-19 16:00] VITALS: BP 151/92; PULSE 72; RESP 18; TEMP 36.8; O2SAT 99
--- NOTE | 2024-12-19 16:42 | PC.NURSE ---
Dr. Bautista made aware pt has no IV access, order for oral hydration, orders read back and carried out.
[2024-12-19 17:03] LABS: Basophils # (Auto) 0.1 Thou/mm3 (0.0-0.2); Basophils % (Auto) 1 % (0-2.5); Eosinophils # (Auto) 0.3 Thou/mm3 (0.0-0.5); Eosinophils % (Auto) 3 % (0-10); Hemoglobin 12.4 g/dL (12.0-16.0); Immature Granulocytes % (Auto) 0 % (0-0); Immature Granulocytes Auto 0.02 Thou/mm3 (0.00-0.00); Lymphocytes # (Auto) 2.8 Thou/mm3 (1.0-4.8); Lymphocytes % (Auto) 30 % (10-50); Mean Corpuscular HGB Conc 34.4 g/dl (31.0-37.0); Mean Corpuscular Hemoglobin 28.7 pg (25.0-35.0); Mean Corpuscular Volume 83 fL (80-100); Monocytes # (Auto) 0.6 Thou/mm3 (0.0-0.8); Monocytes % (Auto) 7 % (0-12); Neutrophils # (Auto) 5.6 Thou/mm3 (1.8-7.7); Neutrophils % (Auto) 60 % (37-80); Nucleated Red Blood Cell % 0 /100 WBC (0); Platelet Count 430 Thou/mm3 (140-440); RDW Standard Deviation 36.8 fL (36.4-46.3); Red Blood Count 4.32 Miln/mm3 (4.00-5.20); White Blood Count 9.4 Thou/mm3 (3.6-11.0)
[2024-12-19 17:26] LABS: Collection Type, Urine Clean Catch
[2024-12-19 17:36] LABS: Alanine Aminotransferase 45 U/L (10-49); Albumin, Serum 4.4 gm/dL (3.5-5.0); Alkaline Phosphatase 128 U/L (46-116); Anion Gap 11 (7-16); Aspartate Amino Transferase 23 U/L (0-34); BUN/Creatinine Ratio 19 Ratio (12-20); Bilirubin,Direct 0.2 mg/dL (0.0-0.3); Bilirubin,Total 0.6 mg/dL (0.3-1.2); Blood Urea Nitrogen 19 mg/dL (9-23); Calcium 9.7 mg/dL (8.3-10.6); Calcium (Corrected) 9.7 mg/dL (8.5-10.1); Carbon Dioxide 29.1 mMol/L (20.0-31.0); Chloride 103 mMol/L (98-107); Estimated Creatinine Clearance 60.9 mL/min (>60); Glucose 92 mg/dL (74-106); Osmolality,Calculated 287 (275-295); Phosphorous 3.6 mg/dL (2.4-5.1); Potassium 3.1 mMol/L (3.4-5.1); Sodium 143 mMol/L (136-145); Total Protein 7.4 gm/dL (5.7-8.2); eGFR > 60 See Note
[2024-12-19 18:02] LABS: Bacteria,Urine 3+; Bilirubin,Urine Negative (Negative); Blood,Urine Negative (Negative); Color,Urine Colorless (Lt Yel-Yel); Glucose, Urine Negative (Negative); Ketones,Urine Negative (Negative); Leukocyte Esterase,Urine Positive (Negative); Nitrite,Urine Negative (Negative); Protein,Urine Negative (Neg - Trace); RBC,Urine 1 /hpf (0-3); Specific Gravity,Urine 1.007 (1.001-1.035); Squamous Epithelial Cell,Urine 2 /hpf (0-5); Urobilinogen,Urine Negative mg/dL (0.0-1.0); WBC,Urine 11 /hpf (0-5)
--- NOTE | 2024-12-19 18:16 | PC.NURSE ---
Dr. Bautista made aware K+ 3.1, orders received, read back and carried out.
[2024-12-19 18:30] LABS: Clarity,Urine Hazy (Clear/Hazy)
[2024-12-19] MEDS: POTASSIUM CHLORIDE 20 mEq TABCR 40 MEQ PO ×2 (18:42→19:55)
[2024-12-19] MEDS: SODIUM CHLORIDE 0.9% 1000 ML 1,000 ML 100 ML IV (19:54)
[2024-12-19 20:00] VITALS: BP 167/94; PULSE 74; RESP 18; TEMP 37.3; O2SAT 97
[2024-12-19] MEDS: CYCLObenzaPRINE 5 MG TABLET PO (20:25)
[2024-12-19] MEDS: cefTRIAXone/D5w 1gm IV premix 1 GM/50 ML BAG IV (20:31)
[2024-12-20] VITALS: BP 152/76; PULSE 70; RESP 17; TEMP 36.6; O2SAT 94
[2024-12-20 04:00] VITALS: BP 130/84; PULSE 69; RESP 17; TEMP 36.7; O2SAT 95
[2024-12-20] MEDS: SODIUM CHLORIDE 0.9% 1000 ML 1,000 ML 100 ML IV (05:57)
[2024-12-20 08:00] VITALS: BP 126/90; PULSE 80; RESP 18; TEMP 36.6; O2SAT 95
[2024-12-20 08:51] LABS: Basophils # (Auto) 0.1 Thou/mm3 (0.0-0.2); Basophils % (Auto) 1 % (0-2.5); Eosinophils # (Auto) 0.2 Thou/mm3 (0.0-0.5); Eosinophils % (Auto) 3 % (0-10); Hematocrit 34.3 % (36.0-46.0); Hemoglobin 12.1 g/dL (12.0-16.0); Immature Granulocytes % (Auto) 0 % (0-0); Immature Granulocytes Auto 0.02 Thou/mm3 (0.00-0.00); Lymphocytes # (Auto) 2.2 Thou/mm3 (1.0-4.8); Lymphocytes % (Auto) 30 % (10-50); Mean Corpuscular HGB Conc 35.3 g/dl (31.0-37.0); Mean Corpuscular Hemoglobin 28.9 pg (25.0-35.0); Mean Corpuscular Volume 82 fL (80-100); Monocytes # (Auto) 0.5 Thou/mm3 (0.0-0.8); Monocytes % (Auto) 6 % (0-12); Neutrophils # (Auto) 4.5 Thou/mm3 (1.8-7.7); Neutrophils % (Auto) 60 % (37-80); Nucleated Red Blood Cell % 0 /100 WBC (0); Platelet Count 437 Thou/mm3 (140-440); RDW Standard Deviation 36.9 fL (36.4-46.3); Red Blood Count 4.18 Miln/mm3 (4.00-5.20); White Blood Count 7.4 Thou/mm3 (3.6-11.0)
--- NOTE | 2024-12-20 08:55 | ESHP_ITS ---
Documentation for date of: 12/19/24 [facility] History of Present Illness Chief complaint: Weakness, dehydration History of present illness: This is a 54-year-old female with PMHx of HTN, HLD, bradycardia requiring pacemaker, CAD s/p stent, and gout who presented to the hospital yesterday afternoon with a two-week history of back pain, nausea, and poor fluid intake. The patient reports that her symptoms began two weeks ago on a Thursday afternoon when she was lying on the couch and felt like she pulled a muscle upon turning. The following day, she experienced difficulty getting up and had spasms on the right side of her back, towards the middle and slightly to the right. She also felt nauseated and thought she might vomit. Concerned about her blood pressure, which she has a history of being difficult to control, she went to the emergency room on December 05 feeling like she might pass out. Surprisingly, her blood pressure was low at 97/62, which is unusual for her as she typically runs in the low 140s to high 130s despite being on multiple antihypertensive medications. During the ER visit, labs and x-rays were performed, showing only a slight common bile duct dilatation. Regarding her back pain, the patient describes it as spasmodic and feeling like a muscle issue, with certain positions exacerbating the discomfort. She was given pain medication and discharged with a prescription for FLEXERIL, which helped with the back spasms. However, the nausea persisted over the next two weeks, leading to poor intake and significant weight loss of more than 10 pounds. She also experienced a fever of 101.5?F and had two episodes of vomiting yellowish stomach content. She denies abdominal pain, constipation, or diarrhea. She reports a syncopal episode on the morning of December 05, where she felt like passing out and her vision darkened while getting ready for work. She did not fall during this episode. She also mentions a recent gout flare-up last , which was treated with emergency medication provided by her son. Her fluid intake has been poor, and she expresses concern about her declining kidney function, noting that her eGFR is down to 25. She denies any history of kidney problems. She reports no urinary symptoms at this time, current UA showing 3+ bacteria, leukocyte esterase, WBC 11. ED COURSE: Afebrile, BP 154/75, HR 71, RR 16, satting 99% on room air. CBC unremarkable. CMP significant for potassium 3.1, ALP 128. CR 2.3, BUN 32, GFR 25. UA showing 3+ bacteria, leukocyte esterase, WBC 11. She was admitted under observation. PMHx: HTN, HLD, bradycardia requiring pacemaker, CAD s/p LAD stent, lactose intolerance, gout PSHx: Pacemaker , LAD stent, cholecystectomy, hysterectomy, tubal ligation, , tonsillectomy and adenectomy MEDS: LOSARTAN 100, HYDRALAZINE 50 mg PRN, HYDROCHLOROTHIAZIDE 25 mg, METOPROLOL succinate 50 mg HS, ATORVASTATIN 80 mg, METFORMIN ALLERGIES: Lactose intolerance FHx: Mother with thyroid cancer, brother with leukemia SH: Works as a nurse, denies alcohol, tobacco or drug use. Review of Systems Review of Systems Narrative Review of Systems: General: Positive for fever, weight loss, poor fluid intake, and decreased appetite. HEENT: Negative for vomiting. Cardiovascular: Positive for syncopal episode. Negative for chest pain. Gastrointestinal: Positive for nausea. Negative for abdominal pain, constipation, and diarrhea. Genitourinary: Negative for burning sensation or foul odor discharge while urinating. Musculoskeletal: Positive for back pain and muscle spasms. Neurological: Positive for near-syncope. Exam Vital Signs Temp Pulse Resp BP Pulse Ox O2 Del Method 98.0 F 69 17 130/84 95 Room Air 12/20/24 04:00 12/20/24 04:00 12/20/24 04:00 12/20/24 04:00 12/20/24 04:00 12/20/24 04:00 Narrative Exam GENERAL * Normal appearing adult female, NAD, on room air HEENT * NCAT.?DONATO. Oral mucosa is moist. Patent Nares NECK * Supple, nontender, no thyromegaly, no meningismus, no JVD, no step offs CHEST * RRR, no m/g/r * CTAB, no w/r/r. Symmetrical chest rise. No intercostal subcostal retraction * Atraumatic, nontender, no crepitus, symmetrical expansion. ABDOMEN * Soft, flat, nontender. No guarding/rebound tenderness/masses. * Bowel sounds presents EXTREMITIES * No edema/cyanosis.? SKIN * Warm and dry, no jaundice/rashes. NEUROMUSCULAR * Mild paraspinal tenderness to palpation over right lumbar region, extending above right hip. No skin changes or bony deformities. * Moves all 4 extremities well, with full ROM and good CSM. * OROZCO x4, CN II-XII grossly intact. * No focal neurologic deficits. PSYCHIATRY * Normal mood and affect, cooperative, no SI or HI or hallucinations. Results: Labs 12/20/24 08:25 12/20/24 08:25 Labs: Short CBC 12/19/24 12/20/24 Range/Units 16:23 08:25 WBC 9.4 7.4 (3.6-11.0) Thou/mm3 Hgb 12.4 12.1 (12.0-16.0) g/dL Hct 36.0 34.3 L (36.0-46.0) % Plt Count 430 437 (140-440) Thou/mm3 BMP 12/19/24 16:23 Sodium 143 Potassium 3.1 L Chloride 103 Carbon Dioxide 29.1 BUN 19 Creatinine 1.0 D Glucose 92 Calcium 9.7 Liver Function 12/19/24 Range/Units 16:23 Total Bilirubin 0.6 (0.3-1.2) mg/dL Direct Bilirubin 0.2 (0.0-0.3) mg/dL AST 23 (0-34) U/L ALT 45 (10-49) U/L Alkaline Phosphatase 128 H (46-116) U/L Albumin 4.4 (3.5-5.0) gm/dL Urine 12/19/24 Range/Units 17:10 Urine Color Colorless A (Lt Yel-Yel) Urine Clarity Hazy (Clear/Hazy) Urine pH 7.0 (5.0-7.0) Ur Specific [place] 1.007 (1.001-1.035) Urine Protein Negative (Neg - Trace) Urine Glucose (UA) Negative (Negative) Quality Measures Quality Measures VTE prophylaxis Medications Home Medications and Allergies Home Medications ?Medication ?Instructions ?Recorded ?Confirmed ?Type aspirin 325 mg tablet,delayed 325 mg PO QDAY ##0 12/24 History release (Aspirin EC) Allergies Allergy/AdvReac Type Severity Reaction Status Date / Time No Known Allergies Allergy Verified 12/05/24 06:38 Visit Medications Acetaminophen (Acetaminophen 325 Mg Tablet) 650 mg PO Q6HR PRN PRN Reason: PAIN Stop: 01/18/25 20:10 Cyclobenzaprine HCl (Cyclobenzaprine 5 Mg Tablet) 5 mg PO BID PRN PRN Reason: MUSCLE SPASMS Stop: 01/18/25 20:15 Last Admin: 12/19/24 20:25 Dose: 5 mg Dextrose (Dextrose 50%-Water Inj 50 Ml Syringe) 25 ml IV Q15MIN PRN PRN Reason: BG 50-70 responsive npo pt Stop: 01/19/25 08:51 Dextrose (Dextrose 50%-Water Inj 50 Ml Syringe) 50 ml IV Q15MIN PRN PRN Reason: BG <50 OR BG <70 & pt unresponsive Stop: 01/19/25 08:51 Glucagon (Glucagon Inj 1 Mg Vial) 1 mg IM Q15MIN PRN PRN Reason: BG <70, and no IV access Sodium Chloride (Ns) 1,000 mls @ 100 mls/hr IV .Q10H DEBBIE Stop: 01/18/25 16:29 Last Admin: 12/20/24 05:57 Dose: 100 mls/hr Ceftriaxone Sodium/Dextrose (Rocephin/D5w 1gm Iv Premix) 1 gm in 50 mls @ 100 mls/hr IV QDAY@2100 [facility] Stop: 12/26/24 20:59 Last Admin: 12/19/24 20:31 Dose: 100 mls/hr Insulin Human Lispro (Insulin Lispro (Admelog) 1 Unit/0.01 Ml Unit) 0 unit SC [facility]; Protocol Stop: 01/19/25 11:29 Ondansetron HCl (Ondansetron Inj 2 Mg/Ml Inj 2 Ml) 4 mg IV Q6HR PRN; Protocol PRN Reason: NAUSEA OR VOMITING Stop: 01/19/25 08:52 Discontinued Medications Acetaminophen (Acetaminophen 325 Mg Tablet) 650 mg PO Q6HR PRN PRN Reason: FEVER >101 Stop: 01/18/25 20:10 Ceftriaxone Sodium 1 gm/ (Sodium Chloride) 50 mls @ 100 mls/hr IV QDAY [facility] Stop: 12/26/24 20:11 Ceftriaxone Sodium/Dextrose (Rocephin/D5w 1gm Iv Premix) 1 gm in 50 mls @ 100 mls/hr IV QDAY [facility] Stop: 12/26/24 20:11 Potassium Chloride (Potassium Chloride 20 Meq Tabcr) 40 meq PO X1 ONE Stop: 12/19/24 18:31 Last Admin: 12/19/24 18:42 Dose: 40 meq Potassium Chloride (Potassium Chloride 20 Meq Tabcr) 40 meq PO X1 ONE Stop: 12/19/24 19:31 Last Admin: 12/19/24 19:55 Dose: 40 meq Assessment & Plan Plan This is a 54-year-old female with PMHx of HTN, HLD, bradycardia requiring pacemaker, CAD s/p stent, and gout who presented to the hospital yesterday afternoon with a two-week history of back pain, nausea, and poor fluid intake. VALENTIN (resolved) Likely in settings of dehydration and UTI. CR 2.3 ? Renally dose meds, avoid overdiuresis and NEPHROTOXINS ? Daily CMP Urinary tract infection (suspected) Reports recent fever of 101.5, nausea and vomiting, poor oral intake. UA showing 3+ bacteria, + LE, and WBC 11. Denies any urinary symptoms. Currently afebrile, no tachycardia, no leukocytosis. ? Continue CEFTRIAXONE (12/20 to present) ? ANTIEMETICS ? Pending urine and blood culture ? Encourage oral intake Back pain with muscle spasms Reports 2 weeks of right back pain, believed she muscle aches, exaggerated by certain movements. On exam, pain located over right lumbar, extending just above right hip, no bony deformity or overlying skin changes. ? Continue CYCLOBENZAPRINE 5 mg BID PRN ? TYLENOL for pain ? LIDOCAINE patches ? Consider physical therapy if pain persists HTN Longstanding, poorly controlled hypertension. Currently seems to be having hypotension. Currently BP 126/90, HR 80 ? Continue home LOSARTAN milligram daily ? discontinue home HYDROCHLOROTHIAZIDE 25 mg ? discontinue home HYDRALAZINE 50 mg PRN for SBP>160 ? Hold home METOPROLOL 100 mg a.m. ? Hold home METOPROLOL SUCCINATE 50 mg HS Bradycardia with pacemaker History of bradycardia with pacemaker placement in 2012, replaced in 2019 due to malfunction. No recent cardiac symptoms reported since pacemaker replacement. ? Holding BETA-BLOCKERS for now, HR 80s. Coronary artery disease HLD Hx of coronary artery disease with previous stent placement in the LAD. No current chest pain or cardiac symptoms reported. ? Continue home ATORVASTATIN 80 mg daily Type 2 diabetes mellitus Admission GLUCOSE 92 ? INSULIN sliding scale ? Accu-Cheks Gout Reports a recent gout flare-up last , which was treated with ALLOPURINOL and INDOMETHACIN. Currently asymptomatic, no signs of gout flares on exam. ? Consider starting ALLOPURINOL on discharge Health maintenance Diet: CHO consistent, lactose-free GI prophylaxis: Not indicated DVT prophylaxis: SCD Antibiotics: CEFTRIAXONE CODE STATUS: Full code Disposition: Admitted under observation for suspected UTI. Case was discussed with attending, Dr. Bautista. Shaw Justin DO PGYI Attending Provider Attestation/Addendum Patient seen and examined with resident physician Dr. Squires. Note reviewed, agree with findings and recommendations. Patient admitted with dehydration. Creatinine markedly improved from last Thursday. Admitted for observation overnight.
[2024-12-20 09:50] LABS: Alanine Aminotransferase 40 U/L (10-49); Albumin, Serum 4.1 gm/dL (3.5-5.0); Albumin/Globulin Ratio 1.5 (1.2-2.2); Alkaline Phosphatase 115 U/L (46-116); Anion Gap 10 (7-16); Aspartate Amino Transferase 23 U/L (0-34); BUN/Creatinine Ratio 16 Ratio (12-20); Bilirubin,Total 0.7 mg/dL (0.3-1.2); Blood Urea Nitrogen 14 mg/dL (9-23); Carbon Dioxide 25.9 mMol/L (20.0-31.0); Chloride 108 mMol/L (98-107); Creatinine (Component) 0.9 mg/dL (0.6-1.3); Estimated Creatinine Clearance 67.7 mL/min (>60); Globulin 2.7 gm/dL (2.3-3.5); Glucose 140 mg/dL (74-106); Magnesium 1.2 mg/dL (1.6-2.6); Osmolality,Calculated 289 (275-295); Phosphorous 3.1 mg/dL (2.4-5.1); Sodium 144 mMol/L (136-145); Total Protein 6.8 gm/dL (5.7-8.2); eGFR > 60 See Note
[2024-12-20 12:00] VITALS: BP 148/92; PULSE 71; RESP 18; TEMP 36.6; O2SAT 98
--- NOTE | 2024-12-20 13:43 | PD.RESDS ---
Planned Discharge Date 12/20/24 DS: Providers Provider Date of admission: 12/19/24 14:51 Primary care physician: Pearl Massey MD Admitting Provider: Pearl Massey MD Attending Provider on Admission: Pearl Massey MD Attending Provider on DC: Pearl Massey MD Discharging Provider: Pearl Massey MD DS: Diagnosis Problem List Completed Was Problem List Reviewed/Reconciled?: Yes Hospital Course Hospital Course Hospital course: This is a 54-year-old female with PMHx of HTN, HLD, bradycardia requiring pacemaker, CAD s/p stent, and gout who presented to the hospital yesterday afternoon with a two-week history of back pain, nausea, and poor fluid intake. Initial workup indicated VALENTIN with creatinine of 2.3. UA showed 3+ bacteria, leukocyte esterase, WBC 11. She also had mild LFTs elevation. CBB was unremarkable. She was admitted under observation. Her symptoms have resolved. VALENTIN resolved. LFTs normalized. CTX was initiated, cultures are pending. She remained asymptomatic without fever or leukocytosis. Will discharge on AUGMENTIN for 5 days and follow-up outpatient in 1-2 weeks. PATIENT INSTRUCTIONS: Follow-up with PCP within 1-2 weeks of discharge. Return to Emergency Room if symptoms persist, worsen, or new symptoms develop. CONTINUE taking the following medications ? ALLOPURINOL 100 mg daily (NEW) ? AUGMENTIN 1 tablet twice daily (NEW) ? METOPROLOL SUCCINATE 50 mg daily ? ASPIRIN 325 mg daily ? ATORVASTATIN 80 mg daily DISCONTINUE taking the following medications ? AMLODIPINE 10 mg ? CYCLOBENZAPRINE 5 mg ? DIPHENHYDRAMINE 25 mg ? NORCO 5/325 mg ? LOSARTAN 100 mg ? MELOXICAM 7 5 mg ? METOPROLOL, tartrate 100 mg ? PRASUGREL 10 mg ? TRAZODONE 2 mg ADMISSION DIAGNOSES: VALENTIN Urinary tract infection Mild transaminitis Back pain with muscle spasms HTN Longstanding, poorly controlled hypertension. Bradycardia with pacemaker Coronary artery disease HLD Type 2 diabetes mellitus Gout Case was discussed with attending, Dr. Massey. Shaw Justin, DO PGYI Status at Discharge Cognitive/behavioral status at discharge: Stable Functional status at discharge: independent ambulation Overall status at discharge: patient is back to baseline Time Spent with Patient Time attestation: Total time spent providing and/or coordinating discharge services: Time spent: Greater than 30 minutes Exam Vital Signs Temp Pulse Resp BP Pulse Ox O2 Del Method 97.9 F 71 18 148/92 H 98 Room Air 12/20/24 12:00 12/20/24 12:00 12/20/24 12:00 12/20/24 12:00 12/20/24 12:00 12/20/24 12:00 Narrative Exam GENERAL APPEARANCE: Patient seems to be comfortable, adequately hydrated and nourished. HEENT: EOMI, PERRLA NECK: Neck supple, no JVD or bruit CARDIOVASCULAR: Heart regular, no murmurs LUNGS/CHEST: Chest clear to auscultation. No rales, rhonchi, wheezing ABDOMEN: Soft, nontender, nondistended. No masses. Normal bowel sounds. EXTREMITIES: No edema, clubbing or cyanosis. SKIN: Skin exam normal without any rashes MUSCULOSKELETAL: Musculoskeletal exam normal PSYCHIATRIC: Normal mood, affect LYMPHATICS: No lymphadenopathy noted NEUROLOGICAL : No neurological deficits Discharge Plan Plan Patient Disposition: HOME (Self Care) Prescriptions/Referrals Prescriptions/Med Rec: New metoprolol succinate 50 mg tablet extended release 24 hr 50 mg PO QDAY Qty: 30 0RF amoxicillin-pot clavulanate [Augmentin] 500-125 mg tablet 1 tab PO BID Qty: 14 0RF allopurinol 100 mg tablet 100 mg PO QDAY Qty: 30 0RF Continued aspirin [Aspirin EC] 325 MG tablet,delayed release (DR/EC) 325 mg PO QDAY Qty: 0 metoprolol succinate [Toprol XL] 50 MG tablet extended release 24 hr 50 mg PO HS Qty: 30 0RF Changed ATORVASTATIN CALCIUM 40 MG tablet 80 mg PO QDAY Qty: 90 0RF Discontinued amlodipine [Norvasc] 10 MG tablet 10 mg PO QDAY Qty: 0 metoprolol tartrate 100 MG tablet 100 mg PO QAM Qty: 60 Losartan Potassium * (COZAAR *) 100 MG tablet 100 mg PO QDAY Qty: 0 Tizanidine Hcl 2 MG tablet 2 mg PO QDAY Qty: 30 ibuprofen 600 MG tablet 1 tab PO Q8HR PRN (Reason: INFLAMMATION) Qty: 30 0RF Hydrocodone/Acetaminophen * (NORCO 5/325 *) 1 TAB tablet 1 tab PO Q6H PRN (Reason: PAIN) Qty: 12 0RF prasugrel [Effient] 10 MG tablet 10 mg PO QDAY Qty: 0 Hydrocodone/Acetaminophen * (NORCO 5/325 *) 1 TAB tablet 1 tab PO Q6H PRN (Reason: pain) Qty: 20 0RF diphenhydramine HCl [Benadryl] 25 mg capsule 25 mg PO Q8H PRN (Reason: allergic symptoms) Qty: 30 0RF meloxicam 7.5 mg tablet 7.5 mg PO BID Qty: 14 0RF cyclobenzaprine 5 mg tablet 5 mg PO TID PRN (Reason: muscle spasm) Qty: 10 0RF Referrals: Pearl Massey MD [Primary Care Provider] - Patient/Caregiver Discharge Instructions Discharge Activity: activity as tolerated Print Language: Lithuanian Activity Restrictions/Additional Instructions: f/u with dr. massey in 2weeks Stand Alone Forms: [employer] Award Info., Work/Release Restrictions Discharge Order Discharge Orders: Discharge (Routine); Ordered 12/20/24 Ordered By: Pearl Massey Quality Discharge Quality Measures VTE prophylaxis MD Attestestation MD Attestation Patient seen and examined with resident physician Dr. Squires. Note reviewed, agree with findings and recommendations. Patient admitted with dehydration. Creatinine markedly improved from last Thursday. Admitted for observation overnight. Creatinine normalized. LFTs normalized. She is going to be discharged on low-dose metoprolol, allopurinol, antibiotics.
[2024-12-20 14:12] LABS: Glucose Estimated Average 140 mg/dL (80-131); Hemoglobin A1C 6.5 % Hgb (4.8-6.0)
[2024-12-20] MEDS: cefTRIAXone/D5w 1gm IV premix 1 GM/50 ML BAG IV (14:27)
[2024-12-20 16:00] VITALS: BP 158/99; PULSE 83; RESP 18; TEMP 36.6; O2SAT 99
== END 2024-12-20 16:27 | disposition home or self-care (01) ==
PROVIDERS: Admitting Provider Internal Medicine; PCP Internal Medicine; Visit Provider Internal Medicine
DX: N17.9 Acute kidney failure, unspecified (principal); N39.0 Urinary tract infection, site not specified; E11.9 Type 2 diabetes mellitus without complications; E78.5 Hyperlipidemia, unspecified; E86.0 Dehydration; I10 Essential (primary) hypertension; I25.10 Atherosclerotic heart disease of native coronary artery without angina pectoris; M10.9 Gout, unspecified; M54.9 Dorsalgia, unspecified; M62.838 Other muscle spasm; R00.1 Bradycardia, unspecified; Z95.0 Presence of cardiac pacemaker
CPT/HCPCS: 36415; 80053; 80069; 80076; 81001; 83036; 83735; 84100; 85025; 87040; 87086; 96360; 96361; G0378; J0696; J7030; A9270

== ENCOUNTER → 2025-01-12 | Outpatient (CLI) | payer BC, SELFPAY ==
--- NOTE | 2025-01-12 | XR_ITS ---
Examination: Lumbar spine, 5 views Technique: Lumbar spine AP, lateral, coned lateral lower lumbar spine, bilateral obliques 5 views Exam date and time: January 12, 2025 1131 hours INDICATIONS: Low back pain beginning one month ago. FINDINGS: Moderate osteopenia Grade 1 anterolisthesis L4 on L5 Mild lumbar spondylosis No lumbar fracture Mild to moderate degenerative disc disease lower 3 lumbar levels IMPRESSION: Mild to moderate lumbar degenerative disc disease lower 3 lumbar levels
--- NOTE | 2025-01-12 | XR_ITS ---
Examination: Toes, left foot first digit Technique: Toes AP oblique lateral 3 views first digit Date and time of exam: January 12, 2025 1131 hours INDICATIONS: Left wrist digit pain and swelling beginning one month ago. FINDINGS: No fracture or dislocation No cortical bone destruction No opaque foreign body IMPRESSION: No fracture or dislocation No cortical bone destruction Mild osteoarthritis first metatarsophalangeal joint
--- NOTE | 2025-01-12 | XR_ITS ---
Examination: Thoracic spine 3 views Technique one AP lateral coned lateral upper dorsal spine 3 views Date and time: January 12, 2025 1149 hours INDICATIONS: Upper back pain beginning one month ago FINDINGS: Adequate alignment thoracic vertebral bodies Moderate osteopenia Mild diffuse thoracic disc narrowing Incidental note advanced degenerative disc disease C5-C6 IMPRESSION: Mild diffuse thoracic degenerative disc disease Advanced degenerative disc disease C5-C6
== END | disposition home or self-care (01) ==
LOC: CDIM 10:48
PROVIDERS: PCP Internal Medicine; Referring Provider Internal Medicine; Visit Provider Internal Medicine
DX: M51.34 Other intervertebral disc degeneration, thoracic region (principal); M50.322 Other cervical disc degeneration at C5-C6 level; M51.360 Other intervertebral disc degeneration, lumbar region with discogenic back pain only; M19.072 Primary osteoarthritis, left ankle and foot
CPT/HCPCS: 72070; 72110; 73660

== ENCOUNTER → 2025-02-08 | Outpatient (CLI) | payer BC, SELFPAY ==
[2025-02-08 10:55] LABS: Collection Type, Urine Clean Catch
[2025-02-08 11:11] LABS: Basophils # (Auto) 0.1 Thou/mm3 (0.0-0.2); Basophils % (Auto) 1 % (0-2.5); Eosinophils # (Auto) 0.3 Thou/mm3 (0.0-0.5); Eosinophils % (Auto) 5 % (0-10); Hematocrit 40.4 % (36.0-46.0); Hemoglobin 13.8 g/dL (12.0-16.0); Immature Granulocytes % (Auto) 0 % (0-0); Immature Granulocytes Auto 0.01 Thou/mm3 (0.00-0.00); Lymphocytes # (Auto) 2.2 Thou/mm3 (1.0-4.8); Lymphocytes % (Auto) 42 % (10-50); Mean Corpuscular HGB Conc 34.2 g/dl (31.0-37.0); Mean Corpuscular Hemoglobin 28.2 pg (25.0-35.0); Mean Corpuscular Volume 83 fL (80-100); Monocytes # (Auto) 0.4 Thou/mm3 (0.0-0.8); Monocytes % (Auto) 7 % (0-12); Neutrophils # (Auto) 2.4 Thou/mm3 (1.8-7.7); Neutrophils % (Auto) 45 % (37-80); Nucleated Red Blood Cell % 0 /100 WBC (0); Platelet Count 203 Thou/mm3 (140-440); RDW Standard Deviation 40.6 fL (36.4-46.3); Red Blood Count 4.89 Miln/mm3 (4.00-5.20); White Blood Count 5.4 Thou/mm3 (3.6-11.0)
[2025-02-08 11:29] LABS: Bilirubin,Urine Negative (Negative); Blood,Urine Negative (Negative); Clarity,Urine Clear (Clear/Hazy); Color,Urine Colorless (Lt Yel-Yel); Glucose, Urine Negative (Negative); Ketones,Urine Negative (Negative); Leukocyte Esterase,Urine Negative (Negative); Nitrite,Urine Negative (Negative); PH,Urine 6.5 (5.0-7.0); Protein,Urine Negative (Neg - Trace); RBC,Urine 1 /hpf (0-3); Specific Gravity,Urine 1.013 (1.001-1.035); Squamous Epithelial Cell,Urine < 1 /hpf (0-5); Urobilinogen,Urine Negative mg/dL (0.0-1.0); WBC,Urine 1 /hpf (0-5)
[2025-02-08 11:31] LABS: Glucose Estimated Average 134 mg/dL (80-131); Hemoglobin A1C 6.3 % Hgb (4.8-6.0)
[2025-02-08 11:50] LABS: Creatinine MALB Rnd Ur 60 mg/dL (30-125); Microalbumin, Random Urine < 3 mg/L (0-300)
[2025-02-08 11:51] LABS: Alanine Aminotransferase 68 U/L (10-49); Albumin, Serum 4.5 gm/dL (3.5-5.0); Albumin/Globulin Ratio 1.9 (1.2-2.2); Alkaline Phosphatase 91 U/L (46-116); Anion Gap 11 (7-16); BUN/Creatinine Ratio 21 Ratio (12-20); Bilirubin,Total 1.1 mg/dL (0.3-1.2); Blood Urea Nitrogen 19 mg/dL (9-23); Calcium 9.4 mg/dL (8.3-10.6); Calcium (Corrected) 9.4 mg/dL (8.5-10.1); Carbon Dioxide 29.8 mMol/L (20.0-31.0); Cardiac Risk Estimate 3.7 RATIO (3.7-5.6); Chloride 103 mMol/L (98-107); Cholesterol 147 mg/dL (132-200); Creatinine (Component) 0.9 mg/dL (0.6-1.3); Free T4 (Free Thyroxine) 1.28 ng/dL (0.89-1.76); Globulin 2.4 gm/dL (2.3-3.5); Glucose 116 mg/dL (74-106); HDL Cholesterol 40 mg/dL (40-60); LDL Cholesterol,Calculated 67 mg/dL (0-130); Osmolality,Calculated 290 (275-295); Potassium 4.2 mMol/L (3.4-5.1); Sodium 144 mMol/L (136-145); Thyroid Stimulating Hormone 1.52 uIU/mL (0.55-4.78); Total Protein 6.9 gm/dL (5.7-8.2); Triglycerides 199 mg/dL (30-150); eGFR > 60 See Note
[2025-02-13 07:12] LABS: Aldosterone* 10 ng/dL
[2025-02-15 06:42] LABS: Renin Activity, Plasma* 0.34 ng/mL/h (0.25-5.82)
== END | disposition home or self-care (01) ==
LOC: COPL 10:03
PROVIDERS: PCP Internal Medicine; Referring Provider Internal Medicine Endocrinology, Diabetes & Metabolism; Visit Provider Internal Medicine Endocrinology, Diabetes & Metabolism
DX: E11.65 Type 2 diabetes mellitus with hyperglycemia (principal); E26.9 Hyperaldosteronism, unspecified; I10 Essential (primary) hypertension; E78.5 Hyperlipidemia, unspecified
CPT/HCPCS: 36415; 80053; 80061; 81001; 82043; 82088; 82570; 83036; 84244; 84439; 84443; 85025

== ENCOUNTER → 2025-04-26 | Outpatient (CLI) | payer BC, SELFPAY ==
--- NOTE | 2025-04-26 11:45 | XR_ITS ---
Examination: Bilateral AP knees single view Technique: AP bilateral knees standing single view. The dens time: April 26, 2025, 1235 hrs. Indications: Knee pain joint popping several years. Findings: Moderate osteopenia. Mild bilateral narrowing medial joint spaces. No fractures. Impression: Mild narrowing medial joint spaces bilaterally.
--- NOTE | 2025-04-26 11:45 | XR_ITS ---
Examination: Bilateral knees 4 views Technique: AP lateral right and left knees total 4 views Date and time: April 26, 2025 1236 hrs. Indications: Knee pain several years. Findings: Bilateral mild narrowing medial joint spaces. No fracture or dislocation. Moderate osteopenia Impression: Bilateral mild narrowing medial joint spaces.
== END | disposition home or self-care (01) ==
LOC: CDIM 11:32
PROVIDERS: PCP Internal Medicine; Referring Provider Internal Medicine; Visit Provider Internal Medicine
DX: M25.862 Other specified joint disorders, left knee (principal); M25.861 Other specified joint disorders, right knee
CPT/HCPCS: 73560; 73565

== ENCOUNTER → 2025-06-26 | Outpatient (CLI) | payer BC, SELFPAY ==
[2025-06-26 07:53] LABS: Misc Send Out* See Sep Rpt
[2025-06-26 09:21] LABS: AFP Non-Pregnant 3.20 ng/mL (<8.10); Alanine Aminotransferase 69 U/L (10-49); Albumin, Serum 5.2 gm/dL (3.5-5.0); Alkaline Phosphatase 93 U/L (46-116); Anion Gap 12 (7-16); Aspartate Amino Transferase 60 U/L (0-34); BUN/Creatinine Ratio 13 Ratio (12-20); Bilirubin,Direct 0.3 mg/dL (0.0-0.3); Bilirubin,Total 0.9 mg/dL (0.3-1.2); Blood Urea Nitrogen 15 mg/dL (9-23); Calcium 9.9 mg/dL (8.3-10.6); Carbon Dioxide 30.0 mMol/L (20.0-31.0); Chloride 104 mMol/L (98-107); Creatinine (Component) 1.2 mg/dL (0.6-1.3); Glucose 154 mg/dL (74-106); Osmolality,Calculated 294 (275-295); Potassium 3.2 mMol/L (3.4-5.1); Sodium 146 mMol/L (136-145); Total Protein 7.4 gm/dL (5.7-8.2); eGFR 54 See Note
== END | disposition home or self-care (01) ==
LOC: COPL 07:39
PROVIDERS: PCP Internal Medicine; Referring Provider Colon & Rectal Surgery; Visit Provider Colon & Rectal Surgery
DX: Z01.89 Encounter for other specified special examinations (principal)
CPT/HCPCS: 36415; 80048; 80076; 82105

== ENCOUNTER 2025-06-27 08:10 | Outpatient (AMB) | payer BC, SELFPAY ==
[2025-06-27 08:44] VITALS: BP 106/73; PULSE 65; RESP 18; TEMP 36.3; O2SAT 95; BMI 23.9
--- NOTE | 2025-06-27 08:44 | PD.ORTHCLVIS ---
Vital signs 06/27/25 08:44 Height 1.68 m Height Method Stated Weight 67.273 kg Weight Measurement Method Standing Scale BMI 23.9 BP 106/73 Blood Pressure Source Automatic Cuff Blood Pressure Location Left Upper Arm Position Sitting Respiration 18 Pulse 65 Pulse Source Monitor Temp 97.3 F Temp Source Temporal Artery Scan Pulse Oximetry (%) 95 Oxygen Delivery Method Room Air Med/Allergies Allergies & Medications Allergies No Known Allergies Allergy (Verified 06/27/25 08:47) Medication Reconciliation aspirin 325 mg tablet,delayed release (Aspirin EC) 325 mg PO QDAY ##0 12/24/13 [History Confirmed 06/27/25] ATORVASTATIN CALCIUM 80 mg PO QDAY #90 tabs 12/20/24 [Rx Confirmed 06/27/25] allopurinol 100 mg tablet 100 mg PO QDAY #30 tabs 12/20/24 [Rx Confirmed 06/27/25] amoxicillin 500 mg-potassium clavulanate 125 mg tablet (Augmentin) 1 tab PO BID #14 tabs 12/20/24 [Rx Confirmed 06/27/25] metoprolol succinate 50 mg tablet,extended release 24 hr 50 mg PO QDAY #30 tabs 12/20/24 [Rx Confirmed 06/27/25] metoprolol succinate 50 mg tablet,extended release 24 hr (Toprol XL) 50 mg PO HS #30 tabs 12/20/24 [Rx Confirmed 06/27/25] meloxicam 7.5 mg tablet 7.5 mg PO QDAY #45 tabs 06/27/25 [Rx] Exam Exam Patient is in no acute distress and is cooperative with the examination today. Breathing is nonlabored. In no respiratory distress. Bilateral extremities were evaluated and demonstrates sensation intact to light touch. Palpable pedal pulses are present. No significant edema is present. Bilateral hips were examined. The patient has no pain with log roll of the hips. Internal rotation to 30 degrees and external rotation to 30 degrees is painless. Negative FADIR. The left knee was examined. The left knee is in varus alignment. Range of motion from 0-115 degrees. Knee is stable to varus and valgus as well as AP translation with <5mm. Patient has a negative McMurrays. There is no pain with patellofemoral compression and no crepitus noted. The knee is tender to palpation medially. The right knee was also examined. The right knee is in varus alignment. Range of motion from 0-120 degrees. Knee is stable to varus and valgus as well as AP translation with <5mm. Patient has a negative McMurrays. There is no pain with patellofemoral compression and no crepitus noted. The knee is tender to palpation medially. X-rays from 04/06/2025 reviewed by me today. This demonstrates mild to moderate arthritis and joint space narrowing Assessment and Plan Problem List (1) Degenerative arthritis of knee, bilateral: Status: Acute Plan: ASSESSMENT AND PLAN 1. Right knee pain: The right knee pain is attributed to xvro-ie-urvugioy arthritis, characterized by a narrowing of the joint space and cartilage issues. The pain intensifies with walking and is accompanied by a clicking sound. She has not had injections, physical therapy, or NSAIDs for this condition previously. She was advised to maintain an active lifestyle within her comfort limits. A prescription for meloxicam was provided, with instructions to take it for five consecutive days and then as needed. A home exercise program was recommended to strengthen her legs without exacerbating the pain. If the condition worsens, she should inform us so that an injection can be considered. She was advised to wear comfortable shoes to help manage her symptoms. Follow-up: A follow-up visit is recommended in 3 to 4 months. Office Procedures GNS Level of Care Nursing/Assessment Patient Status: Initial/New Patient Nursing Assessment/Reassesment: Medication Reconciliation, Update PMH in EMR and Vital Signs Coordination of Care: Complex Care and Chronic Disease 1-5, Education Complex Pt/Fam, Consent,records obtained, informed consent, 1 Ins Authorization, Lab and Imaging orders, Results/Orders obtained and Staff clarify orders New Patient Charge New Patient Point Assignment: 1124 New Patient Point Charge: CLOSING COORDINATOR Level 4 ([id number]) MA Intake Visit Data Collection New Patient or Established: New Patient (never been to [facility]) Reason for Visit:: RIGHT KNEE Seen by Clinical Staff ONLY (RN/MA): No PCP or OBGYN visit in last 3 months: Yes Hx Now: No Do You Feel Safe at Home: Yes Authorities Contacted: N/A Questionairres Past Medical History Past Medical History Have you ever been diagnosed with any of the following: Cardiology Problems Atrial Fibrillation: No Coronary Artery Disease: Yes Congestive Heart Failure: No Congenital Heart Disease: No Hypertension: Yes Respiratory Problems Chronic Obstructive Pulmonary Disease (COPD): No Asthma: No Genital/Urinary Problems Renal Disease: No Musculoskeletal Problems Gout: Yes Endocrine Problems Diabetes Mellitus Type 1: No Diabetes Mellitus Type 2: Yes Blood Problems Sickle Cell Disease: No Other Problems Hospitalization: Yes Blood Transfusions: No Surgical History Pacemaker: Yes Subjective Visit Visit for: new patient and knee Immunization / Flu Flu Vaccine in the Last 12 Months: No Flu Vaccine Exclusion Criteria: Refused by Patient History of Present Illness Chief complaint: RIGHT KNEE PAIN Date of injury / onset of symptoms: 5 +YEARS HISTORY OF PRESENT ILLNESS I, Blayne Costa, have obtained verbal consent from the patient, to be recorded during this encounter which may include, but not limited to, medical history, examination, treatment plans, and relevant health information.? Patient was informed that recording will be read and reviewed by myself before inclusion in the medical chart. The patient is a 55-year-old female who presents today for right knee pain, which she has experienced for over 5 years. She had a standing x-ray completed at [facility]. Her main complaint is that her knee clicks. When she does get pain, it is about a 4 out of 10 and is located in the medial area. She is an RN, and the pain worsens with walking. She has not had injections, physical therapy, or any type of NSAID. She reports that her right knee has been causing discomfort, leading her to limit its use and avoid activities such as exercise and squatting. While the pain has subsided, she continues to experience a clicking sensation in the knee, which varies in intensity. She also mentions occasional discomfort in her left knee. Due to her knee issues, she has refrained from using her legs extensively, resulting in muscle atrophy. Her physical activity is limited, and she does not engage in regular walking or gym workouts. She is currently on medication for heart conditions and gout but not for arthritis. She has previously tried Celebrex but has not used meloxicam. She expresses interest in a home exercise program to strengthen her legs without exacerbating the pain. Personal History Occupation: RN Pain Pain level (0-10): 4 Pain duration: CLICKING Pain location: inside (medial) Pain timing: increases with activity Associated signs & symptoms: none Ambulatory data Ambulatory device: none Treatments Number of previous injections: 0 Improvement with previous injections: No Number of Physical Therapy sessions: 0 Improvement with PT: No Improvement with NSAIDS: no Review of Systems Review of Systems: All systems negative unless otherwise noted in HPI.
== END 2025-06-27 09:01 | disposition home or self-care (01) ==
LOC: HODSRG 08:10
PROVIDERS: PCP Internal Medicine; Referring Provider Internal Medicine; Supervising Provider Orthopaedic Surgery Adult Reconstructive Orthopaedic Surgery; Visit Provider Orthopaedic Surgery Adult Reconstructive Orthopaedic Surgery
DX: M25.561 Pain in right knee (principal); M17.0 Bilateral primary osteoarthritis of knee; I10 Essential (primary) hypertension
CPT/HCPCS: 99204; G0463

== ENCOUNTER → 2025-07-19 | Outpatient (CLI) | payer BC, SELFPAY ==
--- NOTE | 2025-07-19 14:30 | XR_ITS ---
EXAMINATION: Thyroid sonography complete TECHNIQUE: Grayscale sonographic images thyroid lobes Date and time: July 19, 2025, 1420 hours INDICATIONS: Multiple thyroid nodules on examination August 12, 2024 FINDINGS: Right thyroid 4.9 cm Lower pole nodule 4 x 4 millimeter Smaller nodules Left thyroid 4.9 cm Upper pole nodule 7 x 8 mm Upper pole cyst 7 x 7 mm Lower pole nodule 14 x 11 mm IMPRESSION: Thyroid nodules as above including mild enlargement lower pole left thyroid nodule compared to the prior study, suggest continued 6-month follow-up thyroid sonography
== END | disposition home or self-care (01) ==
PROVIDERS: PCP Internal Medicine; Referring Provider Internal Medicine Endocrinology, Diabetes & Metabolism; Visit Provider Internal Medicine Endocrinology, Diabetes & Metabolism
DX: E04.2 Nontoxic multinodular goiter (principal)
CPT/HCPCS: 76536

== ENCOUNTER → 2025-07-20 | Outpatient (CLI) | payer BC, SELFPAY ==
--- NOTE | 2025-07-20 11:00 | XR_ITS ---
Examination: Screening digital mammography, bilateral Computer aided detection 3-D breast Tomosynthesis, bilateral Date and time of exam: July 20, 2025, 1119 hours Compared to mammograms dating to 05/02/2014 Indication: Screening Technique: Nonmagnified MLO, CC views of the breasts to been obtained, reconstructed from 3-D Tomosynthesis images. R2 computer aided detection program utilized for evaluation of suspicious masses and/or abnormal calcifications. 3-D Tomosynthesis images obtained. Findings: The breasts are heterogeneously dense, which may obscure small masses Benign calcifications No interval suspicious masses Impression: BI-RADS category II: Benign Findings. Recommend 1 year follow-up mammogram.
== END | disposition home or self-care (01) ==
LOC: CDIM 10:55
PROVIDERS: Referring Provider Internal Medicine; Visit Provider Internal Medicine
DX: Z12.31 Encounter for screening mammogram for malignant neoplasm of breast (principal); R92.323 Mammographic fibroglandular density, bilateral breasts; R92.1 Mammographic calcification found on diagnostic imaging of breast
CPT/HCPCS: 77063; 77067

== ENCOUNTER → 2025-07-25 | Outpatient (CLI) | payer BC, SELFPAY ==
[2025-07-25 08:10] LABS: Collection Type, Urine Clean Catch
[2025-07-25 08:45] LABS: Basophils # (Auto) 0.1 Thou/mm3 (0.0-0.2); Basophils % (Auto) 1 % (0-2.5); Eosinophils # (Auto) 0.4 Thou/mm3 (0.0-0.5); Eosinophils % (Auto) 6 % (0-10); Hematocrit 46.9 % (36.0-46.0); Hemoglobin 15.6 g/dL (12.0-16.0); Immature Granulocytes Auto 0.02 Thou/mm3 (0.00-0.00); Lymphocytes # (Auto) 2.5 Thou/mm3 (1.0-4.8); Lymphocytes % (Auto) 37 % (10-50); Mean Corpuscular HGB Conc 33.3 g/dl (31.0-37.0); Mean Corpuscular Hemoglobin 28.7 pg (25.0-35.0); Mean Corpuscular Volume 86 fL (80-100); Monocytes # (Auto) 0.6 Thou/mm3 (0.0-0.8); Monocytes % (Auto) 8 % (0-12); Neutrophils # (Auto) 3.2 Thou/mm3 (1.8-7.7); Neutrophils % (Auto) 48 % (37-80); Nucleated Red Blood Cell # 0.00 Thou/mm3 (0.00-0.00); Nucleated Red Blood Cell % 0 /100 WBC (0); Platelet Count 222 Thou/mm3 (140-440); RDW Standard Deviation 42.0 fL (36.4-46.3); Red Blood Count 5.44 Miln/mm3 (4.00-5.20); White Blood Count 6.7 Thou/mm3 (3.6-11.0)
[2025-07-25 08:54] LABS: Glucose Estimated Average 169 mg/dL (80-131); Hemoglobin A1C 7.5 % Hgb (4.8-6.0)
[2025-07-25 09:00] LABS: Bilirubin,Urine Negative (Negative); Blood,Urine 2+ (Negative); Clarity,Urine Clear (Clear/Hazy); Color,Urine Lt-Yellow (Lt Yel-Yel); Glucose, Urine Negative (Negative); Ketones,Urine Negative (Negative); Leukocyte Esterase,Urine Negative (Negative); Nitrite,Urine Negative (Negative); PH,Urine 7.5 (5.0-7.0); Protein,Urine 2+ (Neg - Trace); RBC,Urine 3 /hpf (0-3); Specific Gravity,Urine 1.017 (1.001-1.035); Squamous Epithelial Cell,Urine 1 /hpf (0-5); Urobilinogen,Urine Negative mg/dL (0.0-1.0); WBC,Urine 11 /hpf (0-5)
[2025-07-25 09:03] LABS: Alanine Aminotransferase 61 U/L (10-49); Albumin, Serum 5.2 gm/dL (3.5-5.0); Albumin/Globulin Ratio 2.3 (1.2-2.2); Anion Gap 13 (7-16); Aspartate Amino Transferase 52 U/L (0-34); BUN/Creatinine Ratio 15 Ratio (12-20); Bilirubin,Total 1.0 mg/dL (0.3-1.2); Blood Urea Nitrogen 20 mg/dL (9-23); Calcium 10.5 mg/dL (8.3-10.6); Calcium (Corrected) 10.5 mg/dL (8.5-10.1); Carbon Dioxide 30.5 mMol/L (20.0-31.0); Chloride 100 mMol/L (98-107); Creatinine (Component) 1.3 mg/dL (0.6-1.3); Free T4 (Free Thyroxine) 1.42 ng/dL (0.89-1.76); Globulin 2.3 gm/dL (2.3-3.5); Glucose 161 mg/dL (74-106); Osmolality,Calculated 290 (275-295); Potassium 3.6 mMol/L (3.4-5.1); Sodium 143 mMol/L (136-145); Thyroid Stimulating Hormone 1.87 uIU/mL (0.55-4.78); Total Protein 7.5 gm/dL (5.7-8.2); Uric Acid 4.0 mg/dL (3.1-7.8); eGFR 49 See Note
[2025-07-25 09:11] LABS: Creatinine MALB Rnd Ur 110 mg/dL (30-125); Microalbumin Creat Ratio 232 mg/gCrea (<30); Microalbumin, Random Urine 255 mg/L (0-300)
[2025-07-25 09:24] LABS: Alkaline Phosphatase 96 U/L (46-116); Cardiac Risk Estimate 3.4 RATIO (3.7-5.6); Cholesterol 121 mg/dL (132-200); HDL Cholesterol 36 mg/dL (40-60); LDL Cholesterol,Calculated 48 mg/dL (0-130); Triglycerides 185 mg/dL (30-150)
== END | disposition home or self-care (01) ==
PROVIDERS: PCP Internal Medicine; Referring Provider Internal Medicine Endocrinology, Diabetes & Metabolism; Visit Provider Internal Medicine Endocrinology, Diabetes & Metabolism
DX: I10 Essential (primary) hypertension (principal); E78.5 Hyperlipidemia, unspecified; E11.65 Type 2 diabetes mellitus with hyperglycemia
CPT/HCPCS: 36415; 80053; 80061; 81001; 82043; 82570; 83036; 84439; 84443; 84550; 85025

== ENCOUNTER → 2025-08-07 | Outpatient (CLI) | payer BC, SELFPAY ==
[2025-08-07 10:36] LABS: Protein Total, Urine 85 mg/dL (1-14)
[2025-08-07 10:50] LABS: Protein Total, 24 hr Urine 2380 mg/24hr (<149); Protein Total, Urine Volume 2800 mL/24hr (600-1800)
== END | disposition home or self-care (01) ==
LOC: SLDO 09:06
PROVIDERS: Referring Provider Internal Medicine; Visit Provider Internal Medicine
DX: N17.9 Acute kidney failure, unspecified (principal)
CPT/HCPCS: 84156

== ENCOUNTER → 2025-08-28 | Outpatient (CLI) | payer BC, SELFPAY ==
--- NOTE | 2025-08-28 09:45 | XR_ITS ---
Study: Bilateral renal ultrasound. INDICATION: Left-sided pain for 3 days. TECHNIQUE: Grayscale ultrasound with color flow Doppler at 0941 hours 28 August 2025. FINDINGS: The right kidney measures 9.7 x 4.2 x 4.9 cm. The cortex measures 1.8 cm. The left kidney measures 10.2 x 5.4 x 5.1 cm. Cortex measures 1.7 cm. The corticomedullary junctions are normally visualized bilaterally. There is no cyst, stone disease or solid mass. There is trace distention of the the renal pelvis bilaterally. The urinary bladder is morphologically normal. Bilateral ureteral jets are identified. A prevoid volume measures 436 mL. Post void volume is 0 mL. IMPRESSION: 1. No acute diagnostic abnormality. Minimal renal pelvis distention.
== END | disposition home or self-care (01) ==
LOC: CDIM 09:28
PROVIDERS: PCP Internal Medicine; Referring Provider Internal Medicine; Visit Provider Internal Medicine
DX: N17.9 Acute kidney failure, unspecified (principal)
CPT/HCPCS: 76770